=== PATIENT | male | born 1960 | race American Indian/Alaskan Native ===

== ENCOUNTER 2017-02-01 03:20 | Inpatient (IN) | payer OTHER ==
[2017-02-01 04:22] LABS: Eosinophils % (Auto) 3.4 % (0.0-4.3); Hematocrit 49.8 % (35.5-45.6); Hemoglobin 16.9 gm/dl (11.8-15.2); Mean Corpuscular HGB Conc 34 % (32-34); Mean Corpuscular Hemoglobin 32 pg (28-32); Mean Corpuscular Volume 94 fl (84-94); Platelet Count 218 K/mm3 (140-440); Red Blood Count 5.29 M/mm3 (3.65-5.03); Red Cell Distribution Width 14.3 % (13.2-15.2); White Blood Count 10.3 K/mm3 (4.5-11.0)
--- NOTE | 2017-02-01 04:51 | Emergency Department Report ---
ED Chest Pain HPI - General Chief Complaint: Chest Pain Stated Complaint: CHEST PAIN Time Seen by Provider: 02/01/17 03:40 Source: patient Mode of arrival: Ambulatory Limitations: No Limitations - History of Present Illness Initial Comments: This is a 56-year-old male presents to the emergency department by EMS from home with complaint of some midsternal and left-sided chest pain that began about 10 PM this evening. He denies any nausea, vomiting, fever or any diaphoresis. He had a small amount of shortness of breath at that time but that is resolved. He received 100 g of fentanyl in route and 2 sublingual nitroglycerin with some improvement in his discomfort. He has a history of coronary artery disease with a previous FL and a stent placed about one year ago. He also has a history of hypertension and hyperlipidemia. 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 No recent travel or sick contacts at home. He is a tobacco smoker. Severity scale (0 -10): 2 - Related Data Previous Rx's Medication Instructions Recorded Last Taken Type Clopidogrel [Plavix] 75 mg PO QDAY #30 tablet 10/10/13 04/03/16 07:14 Rx 75mg Lisinopril [Zestril TAB] 5 mg PO QDAY #30 tablet 10/11/13 04/02/16 Rx 5mg Metoprolol [Lopressor TAB] 25 mg PO BID #60 tablet 10/11/13 04/03/16 05:30 Rx Cilostazol [Pletal] 100 mg PO BID #30 tablet 04/03/16 Unknown Rx Allergies Allergy/AdvReac Type Severity Reaction Status Date / Time acetaminophen [From Tylenol] Allergy Intermediate Rash Verified 04/10/15 08:17 aspirin Allergy Swelling Verified 04/10/15 08:17 Penicillins Allergy Rash Verified 04/10/15 08:17 Heart Score - HEART Score History: Moderately suspicious EKG: Non-specific Age: 45-65 Risk factors: > 3 risk factors or hx of atherosclerotic disease Troponin: < normal limit HEART Score: 5 - Critical Actions Critical Actions: 4-6 pts:12-16.6% risk of adverse cardiac event. Should be admitted ED Review of Systems ROS: Stated complaint: CHEST PAIN Other details as noted in HPI Comment: All other systems reviewed and negative Constitutional: denies: chills, fever Eyes: denies: eye pain, eye discharge, vision change ENT: denies: ear pain, throat pain Respiratory: denies: cough, wheezing Cardiovascular: chest pain. denies: edema Gastrointestinal: denies: abdominal pain, nausea, diarrhea Genitourinary: denies: urgency, dysuria Musculoskeletal: denies: back pain, joint swelling, arthralgia Skin: denies: rash, lesions Neurological: denies: headache, weakness, paresthesias ED Past Medical Hx - Past Medical History Hx Hypertension: Yes (10/2013) Hx CVA: No Hx Heart Attack/AMI: Yes (10/09/2013) Hx Congestive Heart Failure: No Hx Diabetes: No Hx Deep Vein Thrombosis: No Hx Pulmonary Embolism: No Hx GERD: No Hx Liver Disease: No Hx Renal Disease: Yes (patient states one of his kidneys was not working but has resolved now) Hx Sickle Cell Disease: No Hx Arthritis: Yes Hx Headaches / Migraines: No Hx Seizures: No Hx Kidney Stones: Yes (2015) Hx Psychiatric Treatment: No Hx Asthma: No Hx COPD: No Hx Tuberculosis: No Hx Dementia: No Hx HIV: No Additional medical history: CAD. HIGH CHOLESTEROL - Surgical History Hx Coronary Stent: Yes (x1 10/09/2013, X 2 IN 2015) Hx Open Heart Surgery: No Hx Pacemaker: No Hx Internal Defibrillator: No Hx Cholecystectomy: Yes (2007) Hx Appendectomy: No Hx Breast Surgery: No Additional Surgical History: noa 2007 - Social History Smoking Status: Current Every Day Smoker Substance Use Type: None - Medications Home Medications: Home Medications Medication Instructions Recorded Confirmed Last Taken Type Clopidogrel [Plavix] 75 mg PO QDAY #30 tablet 10/10/13 02/01/17 04/03/16 07:14 Rx 75mg Lisinopril [Zestril TAB] 5 mg PO QDAY #30 tablet 10/11/13 02/01/17 04/02/16 Rx 5mg Metoprolol [Lopressor TAB] 25 mg PO BID #60 tablet 10/11/13 02/01/17 04/03/16 05 :30 Rx Cilostazol [Pletal] 100 mg PO BID #30 tablet 04/03/16 02/01/17 Unknown Rx ED Physical Exam - General Limitations: No Limitations - Other Other exam information: GENERAL: The patient is well-developed well-nourished. HENT: Normocephalic. Atraumatic. Patient has moist mucous membranes. EYES: Extraocular motions are intact. Pupils equal reactive to light bilaterally. NECK: Supple. Trachea is midline. CHEST/LUNGS: Clear to auscultation. There is no respiratory distress noted. Chest pain is not reproducible to palpation of the chest wall. HEART/CARDIOVASCULAR: Regular. There is no tachycardia. There is no gallop rub or murmur. ABDOMEN: Abdomen is soft, nontender. Patient has normal bowel sounds. There is no abdominal distention. Obese habitus. SKIN: Skin is warm and dry. NEURO: The patient is awake, alert, and oriented. The patient is cooperative. The patient has no focal neurologic deficits. The patient has normal speech. MUSCULOSKELETAL: There is no tenderness or deformity. There is no limitation range of motion. There is no evidence of acute injury. ED Course Vital Signs 02/01/17 03:47 Temperature 98.2 F Pulse Rate 70 Respiratory 20 Rate Blood Pressure 146/76 [Left] O2 Sat by Pulse 98 Oximetry - Consultations Consultation #1: Due to some changes in the EKG from previous including a small ST depression in aVL and slight elevation in lead 3, I called and spoke with the [employer] professional, Dr. Billy, and he took a look at a picture of the EKG and did not feel that it was a consistent morphology of ST elevation FL. 02/01/17 04:50 STEVE score - Steve Score Age > 65: (0) No Aspirin use within the Past 7 Days: (0) No 3 or more CAD Risk Factors: (1) Yes 2 or more Angina events in past 24 hrs: (1) Yes Known CAD with more than 50% Stenosis: (0) No Elevated Cardiac Markers: (1) Yes ST Deviation Greater than 0.5mm: (0) No STEVE Score: 3 ED Medical Decision Making - Lab Data Result diagrams: 02/01/17 03:39 02/01/17 03:39 - EKG Data -: EKG Interpreted by Me EKG shows normal: sinus rhythm, axis, intervals, QRS complexes (Q-wave to lead 3 ), ST-T waves (there is a mild ST depression to aVL and a mild ST elevation to lead 3) Rate: normal - EKG Data When compared to previous EKG there are: previous EKG unavailable Interpretation: other (sinus rhythm, Q wave to V3, slight ST depression to leave aVL, slight ST elevation to 3) - Radiology Data Radiology results: image reviewed interpreted by me: Chest x-ray does not show any acute process. There are no pleural effusions, obvious pneumonia and there is no pneumothorax. - Medical Decision Making 56-year-old male presents with some acute chest pain that started around 10 PM. EKG showed some mild ST wave changes from his previous visit one year ago so I spoke with the [employer] professional on-call who did not feel that this had the morphology of the elevation FL. Chest x-ray does not show any acute process. He is allergic to aspirin and therefore none was given. He had sublingual nitroglycerinin route. He was given some morphine for return of his chest pain. Labs are mostly unremarkable except for the first troponin came back elevated at 0.046. For this reason he'll be started on IV heparin and will be admitted to hospital for further evaluation and treatment. He has been accepted for admission by the hospitalist, Dr. Cole. - Differential Diagnosis FL, CHF, Pneumonia, Costochondritis, GERD Critical Care Time: No Critical care attestation.: If time is entered above; I have spent that time in minutes in the direct care of this critically ill patient, excluding procedure time. ED Disposition Clinical Impression: Non-ST elevation FL (NSTEMI) CAD (coronary artery disease) Qualifiers: Coronary Disease-Associated Artery/Lesion type: [place] artery [place] vs. transplanted heart: [place] heart Associated angina: angina presence unspecified Qualified Code(s): I25.10 - Atherosclerotic heart disease of [place] coronary artery without angina pectoris Disposition: 09 OP ADMIT IP TO THIS HOSP Is pt being admited?: Yes Condition: Fair Referrals: RIMMA BILLY MD [Primary Care Provider] - 3-5 Days Time of Disposition: 05:57
[2017-02-01 05:29] LABS: Anion Gap 20 mmol/L; BUN/Creatinine Ratio 22.22; Blood Urea Nitrogen 20 mg/dL (9-20); Calcium 9.2 mg/dL (8.4-10.2); Carbon Dioxide 22 mmol/L (22-30); Chloride 98.6 mmol/L (98-107); Glucose 119 mg/dL (75-100); Potassium 4.2 mmol/L (3.6-5.0); Sodium 136 mmol/L (137-145)
[2017-02-01] MEDS ORDERED: MORPHINE ONE (05:32)
[2017-02-01] MEDS ORDERED: MORPHINE IV ONE (05:33)
[2017-02-01 05:46] LABS: Cholesterol 187 mg/dL (50-199); HDL Cholesterol 39 mg/dL (40-59); LDL Cholesterol,Direct 125 mg/dL (50-130); Triglycerides 118 mg/dL (2-149)
[2017-02-01] MEDS ORDERED: HEPARIN 10,000 UNITS/10 ML IV ONE (05:48)
[2017-02-01] MEDS ORDERED: HEPARIN/ 0.45% NACL-25,000 UNIT/500 ML 25,000 UNIT/500 ML BAG IV SCH (06:00)
[2017-02-01] MEDS ORDERED: MORPHINE IV PRN (06:14)
--- NOTE | 2017-02-01 06:20 | History and Physical Report ---
History of Present Illness Date of examination: 02/01/17 Chief complaint: Chest pain History of present illness: 69-year-old -[place] male with past medical history significant for CAD status post 2 stents, hyperlipidemia, hypertension, arthritis presented to the emergency department for complaints of chest pain that started last night. Chest pain is generalized involving left and right-sided, sharp, with radiation to both arms, associated with shortness of breath, no aggravating factors identified, relieved with morphine. REVIEW OF SYSTEMS: GENERAL: no weight change, no fatigue, no fever HEAD: no head ache EYES: no blurry vision, no acute visual loss EARS: no hearing loss, no discharge, no earache NOSE: no stuffiness, no sneezing, no discharge MOUTH, THROAT AND NECK: no bleeding gums, no sore throat, no swollen neck CARDIAC: As stated in HPI. RESPIRATORY: no shortness of breath, no wheeze, no cough, no sputum, no hemoptysis, no asthma GI: no decreased appetite, no nausea, no vomiting, no dysphagia, no diarrhea, no constipation, no abdominal pain URINARY: no change in frequency, no urgency, no polyuria, no hematuria, no incontinence MUSCULOSKELETAL: no muscle weakness, no pain, no joint stiffness NEUROLOGIC: no loss of sensation/numbness, no tingling, no tremors, no weakness/ paralysis HEMATOLOGIC: no anemia, no easy bruising SKIN: no rashes ENDOCRINE: no heat/cold intolerance, no polyuria, no polydipsia, no thyroid problems, no diabetes PSYCHIATRIC: no anxiety, no depression, no suicidal ideations Past History Past Medical History: CAD, hypertension, hyperlipidemia Past Surgical History: cholecystectomy Social history: smoking (half a pack a day), full code. denies: alcohol abuse, prescription drug abuse, IV drug use Family history: CAD, stroke Medications and Allergies Allergies Allergy/AdvReac Type Severity Reaction Status Date / Time acetaminophen [From Tylenol] Allergy Intermediate Rash Verified 04/10/15 08:17 aspirin Allergy Swelling Verified 04/10/15 08:17 Penicillins Allergy Rash Verified 04/10/15 08:17 Home Medications Medication Instructions Recorded Confirmed Last Taken Type Clopidogrel [Plavix] 75 mg PO QDAY #30 tablet 10/10/13 02/01/17 04/03/16 07:14 Rx 75mg Lisinopril [Zestril TAB] 5 mg PO QDAY #30 tablet 10/11/13 02/01/17 04/02/16 Rx 5mg Metoprolol [Lopressor TAB] 25 mg PO BID #60 tablet 10/11/13 02/01/17 04/03/16 05 :30 Rx Cilostazol [Pletal] 100 mg PO BID #30 tablet 04/03/16 02/01/17 Unknown Rx Active Meds: Active Medications Clopidogrel Bisulfate (Plavix) 75 mg PO QDAY [facility] Heparin Sodium/Sodium Chloride (Heparin/ 0.45% Nacl-25,000 Unit/500 Ml) 25,000 unit in 500 mls @ 20 mls/hr IV TITRATE [facility]; 1,000 UNITS/HR PRN Reason: Protocol Isosorbide Dinitrate (Isordil Titradose) 20 mg PO TID [facility] Exam - Physical Exam Narrative exam: Not in cardiopulmonary distress. The patient is obese. Vital signs as documented. Head exam is unremarkable. No scleral icterus . Neck is without jugular venous distension, thyromegaly, or carotid bruits. Lungs are clear to auscultation. Cardiac exam reveals regular rate and Rhythm. First and second heart sounds normal. No murmurs, rubs or gallops. Abdominal exam reveals normal bowel sounds, no masses, no organomegaly and no aortic enlargement. Extremities are nonedematous and both femoral and pedal pulses are normal. NURSES AIDE: Alert and oriented 3. No focal weakness. - Constitutional Vitals: Temp Pulse Resp BP Pulse Ox 98.2 F 70 18 146/76 99 02/01/17 03:47 02/01/17 03:47 02/01/17 05:33 02/01/17 03:47 02/01/17 04:37 Results - Labs CBC & Chem 7: 02/01/17 03:39 02/01/17 03:39 Labs: Laboratory Last Values WBC 10.3 K/mm3 (4.5-11.0) 02/01/17 03:39 RBC 5.29 M/mm3 (3.65-5.03) H 02/01/17 03:39 Hgb 16.9 gm/dl (11.8-15.2) H 02/01/17 03:39 Hct 49.8 % (35.5-45.6) H 02/01/17 03:39 MCV 94 fl (84-94) 02/01/17 03:39 MCH 32 pg (28-32) 02/01/17 03:39 MCHC 34 % (32-34) 02/01/17 03:39 RDW 14.3 % (13.2-15.2) 02/01/17 03:39 Plt Count 218 K/mm3 (140-440) 02/01/17 03:39 Lymph % (Auto) 37.0 % (13.4-35.0) H 02/01/17 03:39 Gage % (Auto) 8.7 % (0.0-7.3) H 02/01/17 03:39 Eos % (Auto) 3.4 % (0.0-4.3) 02/01/17 03:39 Baso % (Auto) 1.0 % (0.0-1.8) 02/01/17 03:39 Lymph # 3.8 K/mm3 (1.2-5.4) 02/01/17 03:39 Gage # 0.9 K/mm3 (0.0-0.8) H 02/01/17 03:39 Eos # 0.3 K/mm3 (0.0-0.4) 02/01/17 03:39 Baso # 0.1 K/mm3 (0.0-0.1) 02/01/17 03:39 Seg Neutrophils % 49.9 % (40.0-70.0) 02/01/17 03:39 Seg Neutrophils # 5.1 K/mm3 (1.8-7.7) 02/01/17 03:39 Sodium 136 mmol/L (137-145) L 02/01/17 03:39 Potassium 4.2 mmol/L (3.6-5.0) 02/01/17 03:39 Chloride 98.6 mmol/L (98-107) 02/01/17 03:39 Carbon Dioxide 22 mmol/L (22-30) 02/01/17 03:39 Anion Gap 20 mmol/L 02/01/17 03:39 BUN 20 mg/dL (9-20) 02/01/17 03:39 Creatinine 0.9 mg/dL (0.8-1.5) 02/01/17 03:39 Estimated GFR > 60 ml/min 02/01/17 03:39 BUN/Creatinine Ratio 22.22 % 02/01/17 03:39 Glucose 119 mg/dL (75-100) H 02/01/17 03:39 Calcium 9.2 mg/dL (8.4-10.2) 02/01/17 03:39 Troponin T 0.047 ng/mL (0.00-0.029) H 02/01/17 03:39 Triglycerides 118 mg/dL (2-149) 02/01/17 03:39 Cholesterol 187 mg/dL (50-199) 02/01/17 03:39 LDL Cholesterol Direct 125 mg/dL (50-130) 02/01/17 03:39 HDL Cholesterol 39 mg/dL (40-59) L 02/01/17 03:39 Cholesterol/HDL Ratio 4.79 % 02/01/17 03:39 - Imaging and Cardiology EKG: image reviewed (ST depression in lead 1 and aVL, ST elevation in V2) Chest x-ray: image reviewed (no acute cardiothoracic abnormality) Assessment and Plan Assessment and plan: Chest pain NSTEMI CAD status post stents, the last one was a year ago Hypertension Medication non-compliance Hyperlipidemia Tobacco abuse - Elevated troponin, EKG shows ST depression in lead 1 and aVL, ST elevation in V2, and Dr. Naranjo consulted and said no ST elevation - Patient is being treated according to ACS protocol, patient is allergic to aspirin and he is on Plavix - Continue appropriate home medications - Counselled about medication adherence and cessation of smoking DVT prophylaxis - Patient is on therapeutic heparin for NSTEMI Disposition - Admit to telemetry floor. Advance Directives: Yes VTE prophylaxis?: Chemical Plan of care discussed with patient/family: Yes
[2017-02-01] MEDS ORDERED: HEPARIN 10,000 UNITS/10 ML ONE (06:54)
[2017-02-01] MEDS ORDERED: HEPARIN/ 0.45% NACL-25,000 UNIT/500 ML 25,000 UNIT/500 ML BAG ONE (06:54)
[2017-02-01 07:14] LABS: INR 0.94 (0.87-1.13)
[2017-02-01 07:15] LABS: Partial Thromboplastin Time 27.8 Sec. (24.2-36.6)
--- NOTE | 2017-02-01 07:15 | XRay Report ---
AP CHEST: HISTORY: chest pain AP view of the chest demonstrates a normal mediastinal and cardiac contour with clear lungs and normal bony and soft tissue structures. IMPRESSION: Unremarkable AP chest.
[2017-02-01] MEDS ORDERED: ISORDIL TITRADOSE PO SCH (08:00)
[2017-02-01] MEDS ORDERED: ZESTRIL PO SCH ×2 (10:00→13:40)
[2017-02-01] MEDS ORDERED: PLAVIX PO SCH ×2 (10:00)
[2017-02-01] MEDS ORDERED: PLETAL PO SCH (10:00)
[2017-02-01] MEDS ORDERED: LOPRESSOR PO SCH ×2 (10:00)
--- NOTE | 2017-02-01 10:03 | Consultation ---
History of Present Illness Consult date: 02/01/17 Requesting physician: MELODY BREWER Consult reason: abnormal cardiac enzymes History of present illness: The pt is a 56 YO male with a past medical history significant for CAD, s/p PCI (10/09/2013>s/p PCI of mid LAD with ANGELA,right radial,50% mid circ,ectatic RCA>EF 40-45%; 04/03/2016>mid crc ANGELA 3.5 x 12 Xience Alpine stent with patent mid LAD stent and 40-50% proximal LAD lesion and mild to moderate RCA disease.EF 50%), HTN, HLP and tobacco use. He is followed in our office by Dr. Naranjo. He presented with c/o chest pain since yesterday AM. He describes his chest pain as a misternal and left-sided intermittent "pressing" pain. The pain persisted throughout the day yesterday and around 10PM last night, became unbearable (10/ 10 on 0-10 numerical pain scale) and thus he decided to seek medical attention. Pt reports that the pain is aggravated by lying flat and alleviated by sitting upright. The pain is associated with SOB. He denies any palpitations, n/v, diaphoresis, dizziness or syncope. Pt has known ASA allergy. He states he has been compliant with his home medication regimen, including Plavix, Pletal, lopressor, lisinopril and pravastatin. On evaluation, he reports that he is still experiencing the chest pain intermittently but has experienced some relief since receiving IV morphine. He is currently on a heparin gtt. Echo done 09/03/2014 showed EF 55-60%, impaired relaxation. Past History Past Medical History: CAD, hypertension, hyperlipidemia Past Surgical History: cholecystectomy, Other (PCI) Social history: smoking (half a pack a day), full code. denies: alcohol abuse, prescription drug abuse, IV drug use Family history: CAD, stroke Medications and Allergies Allergies Allergy/AdvReac Type Severity Reaction Status Date / Time acetaminophen [From Tylenol] Allergy Intermediate Rash Verified 04/10/15 08:17 aspirin Allergy Swelling Verified 04/10/15 08:17 Penicillins Allergy Rash Verified 04/10/15 08:17 Home Medications Medication Instructions Recorded Confirmed Last Taken Type Clopidogrel [Plavix] 75 mg PO QDAY #30 tablet 10/10/13 02/01/17 04/03/16 07:14 Rx 75mg Lisinopril [Zestril TAB] 5 mg PO QDAY #30 tablet 10/11/13 02/01/17 04/02/16 Rx 5mg Metoprolol [Lopressor TAB] 25 mg PO BID #60 tablet 10/11/13 02/01/17 04/03/16 05 :30 Rx Cilostazol [Pletal] 100 mg PO BID #30 tablet 04/03/16 02/01/17 Unknown Rx Active Meds: Active Medications Cilostazol (Pletal) 100 mg PO BID [facility] Clopidogrel Bisulfate (Plavix) 75 mg PO QDAY [facility] Heparin Sodium/Sodium Chloride (Heparin/ 0.45% Nacl-25,000 Unit/500 Ml) 25,000 unit in 500 mls @ 20 mls/hr IV TITRATE [facility]; 1,000 UNITS/HR PRN Reason: Protocol Last Admin: 02/01/17 07:03 Dose: 1,000 units/hr, 20 mls/hr Isosorbide Dinitrate (Isordil Titradose) 20 mg PO TID [facility] Last Admin: 02/01/17 09:13 Dose: 20 mg Lisinopril (Zestril) 5 mg PO QDAY [facility] Metoprolol Tartrate (Lopressor) 25 mg PO BID [facility] Morphine Sulfate (Morphine) 2 mg IV Q4H PRN PRN Reason: Pain, Moderate (4-6) Review of Systems Constitutional: no weight loss, no weight gain, no fever, no chills, no sweats Ears, nose, mouth and throat: no ear pain, no nose pain, no sinus pressure, no sinus pain Cardiovascular: chest pain, shortness of breath, high blood pressure, no orthopnea, no palpitations, no rapid/irregular heart beat, no edema, no syncope , no lightheadedness, no dyspnea on exertion, no paroxysmal nocturnal dyspnea, no leg edema Respiratory: shortness of breath, no cough, no dyspnea on exertion, no congestion, no wheezing, no pain on inspiration Gastrointestinal: no abdominal pain, no nausea, no vomiting, no diarrhea, no constipation, no change in bowel habits Genitourinary Male: no dysuria, no hematuria, no flank pain, no discharge, no urinary frequency, no urinary hesitancy Musculoskeletal: no neck stiffness, no neck pain, no shooting arm pain, no arm numbness/tingling, no low back pain, no shooting leg pain, no leg numbness/ tingling, no redness of joints Integumentary: no rash, no pruritis, no redness, no sores, no wounds Neurological: no head injury, no paralysis, no weakness, no parathesias, no numbness, no tingling, no seizures, no syncope Psychiatric: no anxiety Endocrine: no cold intolerance, no heat intolerance Hematologic/Lymphatic: no easy bruising, no easy bleeding, no lymphadenopathy Allergic/Immunologic: no urticaria, no wheezing, no persistent infections Physical Examination Vital Signs Temp Pulse Resp BP Pulse Ox 98.2 F 70 20 146/76 98 02/01/17 03:47 02/01/17 03:47 02/01/17 03:47 02/01/17 03:47 02/01/17 03:47 General appearance: mild distress HEENT: Positive: PERRL, Normocephaly, Mucus Membranes Moist Neck: Positive: neck supple, trachea midline Cardiac: Positive: Reg Rate and Rhythm, S1/S2 Lungs: Positive: clear to auscultation Neuro: Positive: Grossly Intact, Cranial Nerve 2-12 Intact Abdomen: Positive: Unremarkable, Soft, Active Bowel Sounds. Negative: Tender Skin: Positive: Clear. Negative: Rash, Wound Musculoskeletal: No Fluid Collection, No Pain, Normal Range of Motion Extremities: Absent: edema Results 02/01/17 03:39 02/01/17 03:39 Coagulation 02/01/17 Range/Units 06:47 PT 13.0 (12.2-14.9) Sec. INR 0.94 (0.87-1.13) APTT 27.8 (24.2-36.6) Sec. - Imaging and Cardiology Echo: report reviewed ( 09/03/2014 showed EF 55-60%, impaired relaxation. ) Cardiac cath: report reviewed (10/09/2013>s/p PCI of mid LAD with ANGELA,right radial,50% mid circ,ectatic RCA>EF 40-45%; 04/03/2016>mid crc ANGELA 3.5 x 12 Xience Alpine stent with patent mid LAD stent and 40-50% proximal LAD lesion and mild to moderate RCA disease.EF 50%) EKG: image reviewed EKG interpretations - Telemetry EKG Rhythm: Sinus Rhythm - EKG Sinus rhythms and dysrhythmias: sinus rhythm Ventricular dysrhythmias: ventricular premature com Additional Comments: j point elevations Assessment and Plan Assessment: Chest pain, atypical Elevated troponin - minimally elevated and flat CAD s/p PCI Abnormal EKG HTN HLP Tobacco use - cessation encouraged ASA allergy Plan: F/u echo. Will proceed with lexiscan MPI stress test. Await findings. Cont current cardiac regimen, including heparin gtt, plavix, pletal, lopressor, lisinopril, isordil. The patient has been seen in conjunction with Dr. Ramos who agrees with the assessment and plan of care.
[2017-02-01] MEDS ORDERED: LEXISCAN IV ONE ×2 (11:40→11:43)
--- NOTE | 2017-02-01 13:47 | Event Note ---
Date: 02/01/17 s/p lexiscan MPI stress test this AM, which showed moderate fixed inferior defect, no ischemia, EF 45%. D/c heparin. Optimize anti-hypertensive regimen - increase lisinopril to 10mg daily. D/c isordil and initiate Imdur, 60mg daily. D/c echo and plan for echo as OP. Currently stable cardiac status. Pt may discharge home from cardiology standpoint. Follow up in our [place] office with Dr. Naranjo on 02/11/2017 @ 2:30PM. Saundra HALE NP / DR. GALVAN
[2017-02-01 14:55] VITALS: BP 123/79
--- NOTE | 2017-02-01 15:31 | Discharge Summary ---
Providers - Providers Date of Admission: 02/01/17 06:10 Date of discharge: 02/01/17 Attending physician: DEMARCUS MAURER 02/01/17 Consult to Cardiac Rehabilitation [CONS] Routine Reason For Exam: Phase 1 02/01/17 06:11 Consult to Cardiology [CONS] Routine Consulting Provider: RIMMA BILLY Reason For Exam: NSTEMI Primary care physician: RIMMA BILLY Hospitalization Reason for admission: chest pain Condition: Fair Pertinent studies: CXR MPI Disposition: - TO HOME OR SELFCARE Time spent for discharge: 35 min Core Measure Documentation - Palliative Care Palliative Care/ Comfort Measures: Not Applicable - Core Measures Any of the following diagnoses?: heart failure - Heart Failure Discharge Requirements STEPHANIE/ARB for LVSD if EF <40%: Yes Beta fernando at discharge: Yes Exam - Physical Exam Narrative exam: Seen and examined: - Constitutional Vitals: Temp Pulse Resp BP Pulse Ox 97.6 F 96 H 20 123/79 92 02/01/17 09:00 02/01/17 12:18 02/01/17 09:00 02/01/17 12:18 02/01/17 09:00 General appearance: Present: no acute distress, obese - EENT Eyes: Present: PERRL, EOM intact - Neck Neck: Present: supple, normal ROM. Absent: masses or JVD - Respiratory Respiratory effort: normal Respiratory: bilateral: CTA, negative: rales, rhonchi - Cardiovascular Rhythm: regular Heart Sounds: Present: S1 & S2. Absent: systolic murmur - Extremities Extremities: no ischemia - Abdominal General gastrointestinal: Present: soft, non-tender, non-distended, normal bowel sounds - Musculoskeletal Musculoskeletal: strength equal bilaterally - Psychiatric Psychiatric: cooperative - Neurologic Neurologic: CNII-XII intact, no focal deficits Plan Activity: advance as tolerated, fall precautions Diet: low cholesterol, low salt Follow up with: RIMMA BILLY MD [Primary Care Provider] - 02/11/17 2:30 am Prescriptions: Cilostazol [Pletal] 100 mg PO BID #30 tablet Clopidogrel [Plavix] 75 mg PO QDAY #30 tablet ISOSORBIDE MONOnitrate [Imdur ER] 60 mg PO QDAY #30 tablet Lisinopril [Zestril TAB] 10 mg PO QDAY #30 tablet Metoprolol [Lopressor TAB] 25 mg PO BID #60 tablet
--- NOTE | 2017-02-02 07:31 | Treadmill Report ---
REFERRING PHYSICIAN: Tamiko Rowley MD., hospitalist. The patient received 10 mCi of technetium 99m Myoview intravenously under resting conditions. Resting myocardial perfusion scan was done. Subsequently, the patient underwent Lexiscan stress as par the protocol.During lexiscan stress , patient received 28 mci of technetium intravenously. After 30-60 minutes, post stress images were done. Computerized reconstruction images were performed for analysis. The post-stress images reveal moderate-sized inferior wall perfusion defect of moderate severity. Gated study did not reveal any wall motion abnormality. Mild global left ventricular systolic dysfunction is seen with LVEF around 45%. The resting images again revealed the perfusion defect seen in the stress images. CONCLUSION: 1. Moderate-sized fixed inferior wall perfusion defect of moderate severity. 2. Mild global left ventricular systolic dysfunction with LVEF around 45%. JOB# [id number] [facility]/CESIA MTDD
[2017-02-02] MEDS ORDERED: IMDUR PO SCH (10:00)
== END 2017-02-01 19:19 | disposition home or self-care (01) | DRG 313 ==
LOC: ED 03:20 → 4A 06:10
PROVIDERS: ADMIT Internal Medicine; ATTEND Internal Medicine
DX: R07.89 Other chest pain (principal); I25.10 Atherosclerotic heart disease of native coronary artery without angina pectoris; I10 Essential (primary) hypertension; E78.5 Hyperlipidemia, unspecified; F17.210 Nicotine dependence, cigarettes, uncomplicated; M19.90 Unspecified osteoarthritis, unspecified site; N28.9 Disorder of kidney and ureter, unspecified; E78.00 Pure hypercholesterolemia, unspecified; Z95.5 Presence of coronary angioplasty implant and graft; Z87.442 Personal history of urinary calculi; Z90.49 Acquired absence of other specified parts of digestive tract; Z79.02 Long term (current) use of antithrombotics/antiplatelets; Z79.899 Other long term (current) drug therapy; Z82.49 Family history of ischemic heart disease and other diseases of the circulatory system; Z82.3 Family history of stroke; Z88.6 Allergy status to analgesic agent; Z88.0 Allergy status to penicillin; Z91.14 Patient's other noncompliance with medication regimen; Z71.6 Tobacco abuse counseling
CPT/HCPCS: 36415; 71010; 78452; 80048; 80061; 84484; 85025; 85520; 85610; 85730; 93005; 93010; 93017; 96374; 96375; 99285; 99406; A9502; J1644; J2270; J2785

== ENCOUNTER 2018-08-25 19:53 | Inpatient (IN) | payer OTHER ==
[2018-08-25] MEDS ORDERED: ASPIRIN PO ONE (20:15)
[2018-08-25 20:30] LABS: Hematocrit 55.7 % (35.5-45.6); Hemoglobin 18.6 gm/dl (11.8-15.2); Mean Corpuscular HGB Conc 33 % (32-34); Mean Corpuscular Volume 94 fl (84-94); Platelet Count 236 K/mm3 (140-440); Red Blood Count 5.94 M/mm3 (3.65-5.03); Red Cell Distribution Width 14.4 % (13.2-15.2)
[2018-08-25 20:45] LABS: BUN/Creatinine Ratio 11; Blood Urea Nitrogen 11 mg/dL (9-20); Calcium 9.6 mg/dL (8.4-10.2); Hemolysis Index 157
[2018-08-25 21:02] LABS: Chol/HDL Ratio 5.33 %; HDL Cholesterol 36 mg/dL (40-59); LDL Cholesterol,Direct 148 mg/dL (50-130)
--- NOTE | 2018-08-25 21:38 | Emergency Department Report ---
ED Chest Pain HPI - General Chief Complaint: Chest Pain Stated Complaint: CHEST PAIN Time Seen by Provider: 08/25/18 21:26 Source: patient Mode of arrival: Ambulatory Limitations: No Limitations - History of Present Illness Initial Comments: Patient is 57 years old male with history of coronary artery disease, status post stenting 2015, hypertension and diabetes. Patient presented to the ER complaining of substernal chest pain, squeezing in nature with no radiation. The patient stated that his pain is 7 out of 10 now. Patient stated pain started last night. Patient denied any shortness of breath, nausea or vomiting. Patient stated that he is allergic to aspirin. MD Complaint: chest pain -: Last night Onset: during rest Pain Location: substernal Severity scale (0 -10): 10 Quality: heaviness, squeezing Consistency: constant - Related Data Previous Rx's Medication Instructions Recorded Last Taken Type Cilostazol [Pletal] 100 mg PO BID #30 tablet 02/01/17 Unknown Rx Clopidogrel [Plavix] 75 mg PO QDAY #30 tablet 02/01/17 Unknown Rx ISOSORBIDE MONOnitrate [Imdur ER] 60 mg PO QDAY #30 tablet 02/01/17 Unknown Rx Lisinopril [Zestril TAB] 10 mg PO QDAY #30 tablet 02/01/17 Unknown Rx Metoprolol [Lopressor TAB] 25 mg PO BID #60 tablet 02/01/17 Unknown Rx Allergies Allergy/AdvReac Type Severity Reaction Status Date / Time acetaminophen [From Tylenol] Allergy Intermediate Rash Verified 04/10/15 08:17 aspirin Allergy Swelling Verified 04/10/15 08:17 Penicillins Allergy Rash Verified 04/10/15 08:17 Heart Score - HEART Score History: Highly suspicious EKG: Non-specific Age: 45-65 Risk factors: > 3 risk factors or hx of atherosclerotic disease Troponin: 1-3x normal limit HEART Score: 7 - Critical Actions Critical Actions: >7 pts:50-65% risk of adverse cardiac event. Early invasive measures ED Review of Systems ROS: Stated complaint: CHEST PAIN Other details as noted in HPI Comment: All other systems reviewed and negative Constitutional: denies: chills, fever ENT: denies: throat pain Respiratory: denies: cough, shortness of breath, SOB with exertion Cardiovascular: chest pain. denies: palpitations, dyspnea on exertion, orthopnea Gastrointestinal: denies: abdominal pain, nausea, vomiting Neurological: denies: headache, weakness, numbness ED Past Medical Hx - Past Medical History Hx Hypertension: Yes Hx CVA: No Hx Heart Attack/AMI: Yes Hx Congestive Heart Failure: Yes Hx Diabetes: No Hx Deep Vein Thrombosis: No Hx Pulmonary Embolism: No Hx GERD: No Hx Liver Disease: No Hx Renal Disease: Yes (patient states one of his kidneys was not working but has resolved now) Hx Sickle Cell Disease: No Hx Arthritis: Yes Hx Headaches / Migraines: No Hx Seizures: No Hx Kidney Stones: Yes (2016) Hx Psychiatric Treatment: No Hx Asthma: No Hx COPD: No Hx Tuberculosis: No Hx Dementia: No Hx HIV: No Additional medical history: CAD. HIGH CHOLESTEROL - Surgical History Hx Coronary Stent: Yes (x2) Hx Open Heart Surgery: No Hx Pacemaker: No Hx Internal Defibrillator: No Hx Cholecystectomy: Yes (2007) Hx Appendectomy: No Hx Breast Surgery: No Additional Surgical History: noa 2007 - Social History Smoking Status: Current Every Day Smoker Substance Use Type: None - Medications Home Medications: Home Medications Medication Instructions Recorded Confirmed Last Taken Type Cilostazol [Pletal] 100 mg PO BID #30 tablet 02/01/17 Unknown Rx Clopidogrel [Plavix] 75 mg PO QDAY #30 tablet 02/01/17 Unknown Rx ISOSORBIDE MONOnitrate [Imdur ER] 60 mg PO QDAY #30 tablet 02/01/17 Unknown Rx Lisinopril [Zestril TAB] 10 mg PO QDAY #30 tablet 02/01/17 Unknown Rx Metoprolol [Lopressor TAB] 25 mg PO BID #60 tablet 02/01/17 Unknown Rx ED Physical Exam - General Limitations: No Limitations General appearance: alert, in no apparent distress - Head Head exam: Present: atraumatic, normocephalic, normal inspection - Eye Eye exam: Present: normal appearance, PERRL - ENT ENT exam: Present: normal exam, normal orophraynx, mucous membranes moist - Neck Neck exam: Present: normal inspection, full ROM. Absent: tenderness, meningismus, lymphadenopathy, thyromegaly - Respiratory Respiratory exam: Present: normal lung sounds bilaterally - Cardiovascular Cardiovascular Exam: Present: regular rate, normal rhythm, normal heart sounds - GI/Abdominal GI/Abdominal exam: Present: soft, normal bowel sounds. Absent: distended, te nderness, guarding, rebound, rigid, organomegaly, mass, bruit, pulsatile mass, hernia - Extremities Exam Extremities exam: Present: normal inspection, full ROM, normal capillary refill. Absent: pedal edema, calf tenderness - Back Exam Back exam: Present: normal inspection, full ROM. Absent: tenderness, CVA tenderness (R), CVA tenderness (L), muscle spasm, paraspinal tenderness, vertebral tenderness - Neurological Exam Neurological exam: Present: alert, oriented X3, CN II-XII intact, normal gait, reflexes normal - Skin Skin exam: Present: warm, intact, normal color ED Course Vital Signs 08/25/18 08/25/18 08/25/18 20:06 20:13 21:02 Temperature 98.2 F 98.2 F Pulse Rate 94 H 100 H 101 H Respiratory 18 18 16 Rate Blood Pressure 146/97 146/97 O2 Sat by Pulse 96 98 Oximetry STEVE score - Steve Score Age > 65: (0) No Aspirin use within the Past 7 Days: (0) No 3 or more CAD Risk Factors: (1) Yes 2 or more Angina events in past 24 hrs: (1) Yes Known CAD with more than 50% Stenosis: (0) No Elevated Cardiac Markers: (1) Yes ST Deviation Greater than 0.5mm: (0) No STEVE Score: 3 ED Medical Decision Making - Lab Data Result diagrams: 08/25/18 20:19 08/25/18 20:19 - EKG Data -: EKG Interpreted by Me EKG shows normal: sinus rhythm Rate: tachycardia - EKG Data Interpretation: no acute changes - Radiology Data Radiology results: report reviewed - Medical Decision Making Patient is 57 years old male with history of coronary artery disease, status post stenting 2016, hypertension and diabetes. Patient presented to the ER complaining of substernal chest pain, squeezing in nature with no radiation. The patient stated that his pain is 7 out of 10 now. Patient stated pain started last night. Patient denied any shortness of breath, nausea or vomiting. Patient stated that he is allergic to aspirin. Patient EKG did not show any ST elevation. Troponin is positive. Discussed the patient is Dr. Marrero, advised to start heparin drip and patient will be taken to the cardiac cath tomorrow. I discussed the patient is Dr. Thalia Mehta, she'll return to the patient to medical service. Critical Care Time: Yes Critical care time in (mins) excluding proc time.: 30 Critical care attestation.: If time is entered above; I have spent that time in minutes in the direct care of this critically ill patient, excluding procedure time. ED Disposition Clinical Impression: Non-ST elevation SC (NSTEMI) Disposition: OP ADMIT IP TO THIS HOSP Is pt being admited?: Yes Condition: Stable Referrals: MERLYN SHAFFER MD [Primary Care Provider] - 3-5 Days
[2018-08-25 21:46] LABS: Total Cells Counted 100
[2018-08-25 21:47] LABS: Basophils % (Manual) 0 % (0.0-1.8); Eosinophils % (Manual) 0 % (0.0-4.3); RBC Morphology Normal
[2018-08-25] MEDS ORDERED: HEPARIN 10,000 UNITS/10 ML IV ONE (21:52)
[2018-08-25] MEDS ORDERED: HEPARIN/ 0.45% NACL-25,000 UNIT/500 ML 25,000 UNIT/500 ML BAG IV SCH (22:00)
--- NOTE | 2018-08-25 22:03 | XRay Report ---
PROCEDURE: XR CHEST ROUTINE 2V TECHNIQUE: PA and lateral chest radiographs were obtained. HISTORY: Chest Pain COMPARISONS: None. FINDINGS: Heart: Normal. Mediastinum/Vessels: Normal. Atherosclerotic calcifications. Lungs/Pleural space: Normal. Bony thorax: No acute osseous abnormality. Degenerative change of the spine. IMPRESSION: No acute cardiopulmonary disease. This document is electronically signed by Ankit Laws MD., August 25 2018 10:01:29 PM ET
[2018-08-25] MEDS ORDERED: MORPHINE IV ONE (22:11)
[2018-08-25] MEDS ORDERED: ZOFRAN IV ONE (22:11)
[2018-08-25 22:19] LABS: Hematocrit 53.3 % (35.5-45.6); Hemoglobin 18.3 gm/dl (11.8-15.2)
[2018-08-25] MEDS ORDERED: ZOFRAN IV PRN (22:21)
[2018-08-25] MEDS ORDERED: MORPHINE IV PRN (22:21)
[2018-08-25] MEDS ORDERED: SODIUM CHLORIDE FLUSH SYRINGE 10 ML IV PRN (22:21)
--- NOTE | 2018-08-25 22:21 | History and Physical Report ---
History of Present Illness Date of examination: 08/25/18 History of present illness: 57-year-old man with history of hypertension, hyperlipidemia, coronary artery disease, sciatica, peripheral vascular disease comes emergency room complaining of chest pain, across his chest 2 days. Describes the pain as squeezing, con stant, intensity 7/10, no radiation, took 2 nitroglycerin at home with some relief. Admits to nausea, diaphoresis, shortness of breath, no palpitations Review of systems Constitutional: no weight loss, chills, fever Ears, eyes, nose, mouth and throat: no nasal congestion, no nasal discharge, no sinus pressure, no vision change, no red eye. Neck: No neck pain or rigidity. Cardiovascular: no palpitations Respiratory: no cough,+ shortness of breath Gastrointestinal: no hematochezia, abdominal pain Genitourinary : no frequency , no hematuria Musculoskeletal: no joint swelling or muscle ache Integumentary: no rash, no pruritis Neurological: no parathesias, no focal weakness Endocrine: no cold or heat intolerance, no polyuria or polydipsia Hematologic/Lymphatic: no easy bruising, no easy bleeding, no gland swelling Allergic/Immunologic: no urticaria, no angioedema. PAST MEDICAL HISTORY:hypertension, hyperlipidemia, coronary artery disease, sciatica, peripheral vascular disease PAST SURGICAL HISTORY: Cholecystectomy SOCIAL HISTORY: Denies alcohol, drugs, smokes half pack day FAMILY HISTORY: Hypertension Medications and Allergies Allergies Allergy/AdvReac Type Severity Reaction Status Date / Time acetaminophen [From Tylenol] Allergy Intermediate Rash Verified 04/10/15 08:17 aspirin Allergy Swelling Verified 04/10/15 08:17 Penicillins Allergy Rash Verified 04/10/15 08:17 citrus Allergy Rash Uncoded 08/27/18 11:32 tomato Allergy Rash Uncoded 08/27/18 11:33 Home Medications Medication Instructions Recorded Confirmed Last Taken Type Cilostazol [Pletal] 100 mg PO BID #30 tablet 02/01/17 08/26/18 Unknown Rx Clopidogrel [Plavix] 75 mg PO QDAY #30 tablet 02/01/17 08/26/18 Unknown Rx Lisinopril [Zestril TAB] 10 mg PO QDAY #30 tablet 02/01/17 08/26/18 Unknown Rx Metoprolol [Lopressor TAB] 25 mg PO BID #60 tablet 02/01/17 08/26/18 Unknown Rx AtorvaSTATin [Lipitor] 80 mg PO QHS #60 tablet 08/27/18 Unknown Rx Clopidogrel [Plavix] 75 mg PO BID #60 tablet 08/27/18 Unknown Rx ISOSORBIDE MONOnitrate [Imdur ER] 30 mg PO DAILY #30 tab.er.24h 08/27/18 Unknown Rx Tramadol HCl [Ultram] 50 mg PO Q8H PRN #10 tablet 08/27/18 Unknown Rx Active Meds: Active Medications Heparin Sodium/Sodium Chloride (Heparin/ 0.45% Nacl-25,000 Unit/500 Ml) 25,000 unit in 500 mls @ 20 mls/hr IV TITRATE ALEA; Protocol Exam - Physical Exam Narrative exam: General Apperance: The patient lying in bed, breathing comfortable HEENT: Normocephalic, atraumatic. Pupils equally round and reactive to light, EOMI, no sclericterus or JVD or thyromegaly or nodule. , no carotid bruit, mucous membranes moist, no exudate or erythema Heart: S1-S2, regular is rhythm Lungs: Clear to auscultation bilaterally, breathing comfortable Abdomen: Positive bowel sounds, soft, nontender, nondistended, no organomegaly Extremities: No edema cyanosis clubbing Skin: no rash, nodule, warm and dry Neuro: cranial nerves 2-12 intact, speech is fluent, motor/sensory intact - Constitutional Vitals: Temp Pulse Resp BP Pulse Ox 98.2 F 101 H 16 146/97 98 08/25/18 20:13 08/25/18 21:02 08/25/18 21:02 08/25/18 20:13 08/25/18 20:13 Results - Labs CBC & Chem 7: 08/27/18 05:17 08/27/18 05:17 Labs: Abnormal lab results 08/25/18 08/25/18 Range/Units 20:19 20:19 WBC 12.1 H (4.5-11.0) K/mm3 RBC 5.94 H (3.65-5.03) M/mm3 Hgb 18.6 H (11.8-15.2) gm/dl Hct 55.7 H (35.5-45.6) % Lymphocytes % (Manual) 41.0 H (13.4-35.0) % Monocytes % (Manual) 10.0 H (0.0-7.3) % Monocytes # (Manual) 1.2 H (0.0-0.8) K/mm3 Sodium 135 L (137-145) mmol/L Potassium 5.1 H (3.6-5.0) mmol/L Chloride 97.6 L (98-107) mmol/L Glucose 120 H (75-100) mg/dL Troponin T 0.288 H* (0.00-0.029) ng/mL LDL Cholesterol Direct 148 H (50-130) mg/dL HDL Cholesterol 36 L (40-59) mg/dL - Imaging and Cardiology EKG: image reviewed Chest x-ray: report reviewed Assessment and Plan Assessment Non-STEMI coronary artery disease hypertension hyperlipidemia sciatica peripheral vascular disease Plan Continue heparin drip Start beta fernando, STEPHANIE inhibitor, Plavix IV morphine, cardiology consulted ontinue with outpatient medication DVT prophylaxis
[2018-08-25 22:38] LABS: INR 0.96 (0.87-1.13)
[2018-08-25 22:39] LABS: Partial Thromboplastin Time 27.7 Sec. (24.2-36.6)
[2018-08-25 23:23] LABS: Creatine Kinase MB 54.9 ng/mL (0.0-4.0)
[2018-08-26 05:37] LABS: Basophils # (Auto) 0.1 K/mm3 (0.0-0.1); Basophils % (Auto) 0.6 % (0.0-1.8); Eosinophils # (Auto) 0.3 K/mm3 (0.0-0.4); Hematocrit 49.8 % (35.5-45.6); Lymphocytes # (Auto) 4.2 K/mm3 (1.2-5.4); Lymphocytes % (Auto) 39.9 % (13.4-35.0); Mean Corpuscular HGB Conc 34 % (32-34); Mean Corpuscular Volume 94 fl (84-94); Monocytes # (Auto) 1.1 K/mm3 (0.0-0.8); Monocytes % (Auto) 10.7 % (0.0-7.3); Platelet Count 199 K/mm3 (140-440); Red Blood Count 5.31 M/mm3 (3.65-5.03); Red Cell Distribution Width 14.5 % (13.2-15.2)
[2018-08-26 06:02] LABS: BUN/Creatinine Ratio 13; Blood Urea Nitrogen 14 mg/dL (9-20); Calcium 9.1 mg/dL (8.4-10.2); Hemolysis Index 10
[2018-08-26 06:07] LABS: Creatine Kinase MB 46.9 ng/mL (0.0-4.0)
[2018-08-26] MEDS ORDERED: PLETAL PO SCH (10:00)
[2018-08-26] MEDS ORDERED: ASPIRIN PO SCH (10:00)
[2018-08-26] MEDS ORDERED: PLAVIX PO SCH ×2 (10:00)
[2018-08-26] MEDS ORDERED: HEPARIN 10,000 UNITS/10 ML ONE (10:49)
[2018-08-26] MEDS ORDERED: HEPARIN/NS 5000 UNIT/500ML(CATH LAB) 1,000 ML IR ONE (10:49)
[2018-08-26] MEDS ORDERED: NITROGLYCERIN SYRINGE 3 ML ONE (10:50)
--- NOTE | 2018-08-26 10:50 | Consultation ---
History of Present Illness Consult date: 08/26/18 Requesting physician: GAY CRESPO Consult reason: other (nstemi) History of present illness: The pt is a 57 YO male with a past medical history significant for CAD, s/p PCI, HTN, HLP and tobacco use. He is followed in our office by Dr. Naranjo. He presented with c/o chest pain since Saturday afternoon. He describes his chest pain as a constant misternal aching and burning pain which sometimes radiates down both arms. The pain is sometimes aggravated by exertion. The pain is associated with SOB. He also admits to being very fatigued with exertion over the past several weeks. He denies any palpitations, n/v, diaphoresis, dizziness or syncope. Pt has known ASA allergy (reportedly causes skin rash). He states he has been compliant with his home medication regimen, including Plavix, Pletal, lopressor, lisinopril and pravastatin. On evaluation, he reports that he is still experiencing the chest pain. He is currently on a heparin gtt. Echo done 09/03/2014 showed EF 55-60%, impaired relaxation. LHC done 10/09/2013 with s/p PCI of mid LAD with ANGELA,right radial,50% mid circ,ectatic RCA>EF 40-45% LHC done 04/03/2016 with mid crc ANGELA 3.5 x 12 Xience Alpine stent with patent mid LAD stent and 40-50% proximal LAD lesion and mild to moderate RCA disease.EF 50% Past History Past Medical History: CAD, hypertension, hyperlipidemia Past Surgical History: PTCA Social history: smoking Medications and Allergies Allergies Allergy/AdvReac Type Severity Reaction Status Date / Time acetaminophen [From Tylenol] Allergy Intermediate Rash Verified 04/10/15 08:17 aspirin Allergy Swelling Verified 04/10/15 08:17 Penicillins Allergy Rash Verified 04/10/15 08:17 Home Medications Medication Instructions Recorded Confirmed Last Taken Type Cilostazol [Pletal] 100 mg PO BID #30 tablet 02/01/17 08/26/18 Unknown Rx Clopidogrel [Plavix] 75 mg PO QDAY #30 tablet 02/01/17 08/26/18 Unknown Rx ISOSORBIDE MONOnitrate [Imdur ER] 60 mg PO QDAY #30 tablet 02/01/17 08/26/18 Unknown Rx Lisinopril [Zestril TAB] 10 mg PO QDAY #30 tablet 02/01/17 08/26/18 Unknown Rx Metoprolol [Lopressor TAB] 25 mg PO BID #60 tablet 02/01/17 08/26/18 Unknown Rx Active Meds: Active Medications Aspirin (Aspirin) 325 mg PO QDAY [facility] Atorvastatin Calcium (Lipitor) 40 mg PO QHS [facility] Cilostazol (Pletal) 100 mg PO BID [facility] Clopidogrel Bisulfate (Plavix) 75 mg PO QDAY [facility] Heparin Sodium/Sodium Chloride (Heparin/ 0.45% Nacl-25,000 Unit/500 Ml) 25,000 unit in 500 mls @ 20 mls/hr IV TITRATE ALEA; Protocol Last Titration: 08/26/18 06:15 Dose: 1,150 units/hr, 23 mls/hr Documented by: Sodium Chloride (Nacl 0.9% 500 Ml) 500 mls @ 50 mls/hr IV DIRECT ALEA Stop: 08/26/18 19:59 Isosorbide Mononitrate (Imdur) 60 mg PO QDAY [facility] Lisinopril (Zestril) 10 mg PO QDAY [facility] Metoprolol Tartrate (Lopressor) 25 mg PO BID [facility] Morphine Sulfate (Morphine) 2 mg IV Q4H PRN PRN Reason: Pain, Moderate (4-6) Ondansetron HCl (Zofran) 4 mg IV Q8H PRN PRN Reason: Nausea And Vomiting Sodium Chloride (Sodium Chloride Flush Syringe 10 Ml) 10 ml IV BID [facility] Sodium Chloride (Sodium Chloride Flush Syringe 10 Ml) 10 ml IV PRN PRN PRN Reason: LINE FLUSH Review of Systems Constitutional: no weight loss, no weight gain, no fever, no chills, no sweats Ears, nose, mouth and throat: no ear pain, no nose pain, no sinus pressure, no sinus pain Cardiovascular: chest pain, shortness of breath, dyspnea on exertion, high blood pressure, decreased exercise tolerance, no orthopnea, no palpitations, no rapid/irregular heart beat, no edema, no syncope, no lightheadedness, no leg edema Respiratory: shortness of breath, dyspnea on exertion, no cough, no congestion, no wheezing, no pain on inspiration Gastrointestinal: no abdominal pain, no nausea, no vomiting, no diarrhea, no constipation, no change in bowel habits Genitourinary Male: no dysuria, no hematuria, no flank pain, no discharge, no urinary frequency, no urinary hesitancy Musculoskeletal: no neck stiffness, no neck pain, no shooting arm pain, no arm numbness/tingling, no low back pain, no shooting leg pain Integumentary: no rash, no pruritis, no redness, no sores, no wounds Neurological: no head injury, no paralysis, no parathesias, no numbness, no tingling, no seizures, no syncope Psychiatric: no anxiety Endocrine: no cold intolerance, no heat intolerance Hematologic/Lymphatic: no easy bruising, no easy bleeding Allergic/Immunologic: no urticaria, no wheezing Physical Examination Vital Signs Temp Pulse Resp BP Pulse Ox 98.2 F 94 H 18 146/97 96 08/25/18 20:06 08/25/18 20:06 08/25/18 20:06 08/25/18 20:06 08/25/18 20:06 General appearance: no acute distress HEENT: Positive: PERRL, Normocephaly, Mucus Membranes Moist Neck: Positive: neck supple, trachea midline Cardiac: Positive: Reg Rate and Rhythm, S1/S2 Lungs: Positive: clear to auscultation Neuro: Positive: Grossly Intact Abdomen: Positive: Soft. Negative: Tender Skin: Positive: Clear. Negative: Rash, Wound Musculoskeletal: No Pain Extremities: Absent: edema Results 08/26/18 04:56 08/26/18 04:56 Cardiac Enzymes 08/25/18 08/26/18 Range/Units 22:55 04:56 CK-MB (CK-2) 54.9 H 46.9 H (0.0-4.0) ng/mL Coagulation 08/25/18 Range/Units 22:10 PT 13.4 (12.2-14.9) Sec. INR 0.96 (0.87-1.13) APTT 27.7 (24.2-36.6) Sec. Lipids 08/25/18 Range/Units 20:19 Triglycerides 104 (2-149) mg/dL Cholesterol 192 (50-199) mg/dL HDL Cholesterol 36 L (40-59) mg/dL Cholesterol/HDL Ratio 5.33 % CBC 08/25/18 08/25/18 08/26/18 Range/Units 20: 22:10 04:56 WBC 12.1 H 10.5 (4.5-11.0) K/mm3 RBC 5.94 H 5.31 H (3.65-5.03) M/mm3 Hgb 18.6 H 18.3 H 17.0 H (11.8-15.2) gm/dl Hct 55.7 H 53.3 H 49.8 H (35.5-45.6) % Plt Count 236 227 199 (140-440) K/mm3 Lymph # Drafting Engineer 4.2 Castro # 1.1 H (0.0-0.8) K/mm3 Eos # 0.3 (0.0-0.4) K/mm3 Baso # 0.1 (0.0-0.1) K/mm3 Comprehensive Metabolic Panel 08/25/18 08/26/18 Range/Units 20:19 04:56 Sodium 135 L 138 (137-145) mmol/L Potassium 5.1 H 4.0 D (3.6-5.0) mmol/L Chloride 97.6 L 100.7 (98-107) mmol/L Carbon Dioxide 24 23 (22-30) mmol/L BUN 11 14 (9-20) mg/dL Creatinine 1.0 1.1 (0.8-1.5) mg/dL Glucose 120 H 110 H (75-100) mg/dL Calcium 9.6 9.1 (8.4-10.2) mg/dL - Imaging and Cardiology Echo: pending, report reviewed (09/03/2014 showed EF 55-60%, impaired relaxation. ) Cardiac cath: pending, report reviewed (10/09/2013 with s/p PCI of mid LAD with ANGELA,right radial,50% mid circ,ectatic RCA>EF 40-45%) EKG: report reviewed, image reviewed EKG interpretations - Telemetry EKG Rhythm: Sinus Rhythm - EKG Sinus rhythms and dysrhythmias: sinus rhythm Chamber hypertrophy or enlargement: left ventricular hypertro Assessment and Plan NSTEMI Pt is presently experiencing chest pain. Coronary angiography recommended for definitive diagnosis. Indications, potential risks and benefits reviewed with pt and he is agreeable to proceed with LHC today. Await findings. F/u echo. CAD s/p PCI LHC done 10/09/2013 with s/p PCI of mid LAD with ANGELA,right radial,50% mid circ,ectatic RCA>EF 40-45% LHC done 04/03/2016 with mid crc ANGELA 3.5 x 12 Xience Alpine stent with patent mid LAD stent and 40-50% proximal LAD lesion and mild to moderate RCA disease.EF 50% ASA allergy On Plavix and Pletal at home HTN HLP Tobacco use The patient has been seen in conjunction with Dr. Davis who agrees with the assessment and plan of care.
[2018-08-26] MEDS ORDERED: NACL 0.9% 500 ML 500 ML IV SCH (11:00)
[2018-08-26] MEDS ORDERED: NACL 0.9% 500 ML 0 ML ONE (11:09)
[2018-08-26] MEDS: VERSED ONE ×2 (11:14→11:15)
[2018-08-26] MEDS: XYLOCAINE 2% INFILTRATI ONE ×2 (11:14→11:17)
[2018-08-26] MEDS: SUBLIMAZE ONE ×3 (11:14→11:57)
[2018-08-26] MEDS ORDERED: ZOFRAN ONE (11:25)
[2018-08-26] MEDS ORDERED: ANGIOMAX IV ONE (11:34)
[2018-08-26] MEDS ORDERED: NACL 0.9% 0 ML ONE (11:35)
[2018-08-26] MEDS ORDERED: NACL 0.9% 100 ML ONE (11:36)
--- NOTE | 2018-08-26 13:22 | Cardiac Catherization Report ---
LEFT HEART CATHETERIZATION/PERCUTANEOUS BALLOON ANGIOPLASTY REPORT AND STENT REPORT WITH INTRAVASCULAR ULTRASOUND REPORT CLINICAL INFORMATION: A 57-year-old gentleman who has morbid obesity, hypertension, known coronary artery disease with PCI of the LAD in 2013, PCI of the circumflex in 2016, review of the films with drug-eluting Xience 3.5 x 15. The patient had chest pain recurrence on Saturday with troponin suggestive of non-ST elevation [place] type 1. The patient has also acute diastolic dysfunction. The patient is allergic to ASPIRIN, so has been taking Pletal and Plavix. Procedure was done with moderate sedation, started at 11:15 a.m. and finished at 12:00 p.m., 45 minutes of moderate sedation, 1 mg Versed, 50 mcg of fentanyl. Procedure was performed via the right femoral artery, sterile technique, local anesthesia, done under fluoroscopy, 5-English groin sheath inserted. 2. Left system engaged with JL4 catheter. Left main is large and patent. Mild diffuse disease, bifurcates into large LAD, proximal diffuse disease with focal areas of 30-40%. Stent is patent after the stent. There is a focal 90% lesion with STACY 3 flow. Distal is patent with diffuse disease, small diagonal 1 and 2 are patent. Circumflex is a large caliber vessel, mid stent patent. OM1 is 100%. OM2 is patent. RCA has a left cusp with an anterior takeoff, so an AR mod was used to engage. This is a large dominant vessel, proximal is patent with diffuse disease in mid to distal diffuse 30-40%, bifurcates into a [id number] caliber PDA, PLV that are patent. Mild luminal irregularities. LV gram done in POLISH and CHAIREZ view shows borderline normal LV function, EF 45%, LVEDP of 16 mmHg, LV is 178. Aortic is 178/95. No gradient across the aortic valve on pullback. Percutaneous coronary intervention of the culprit OM1 engaged left system with EBU 3.5 guiding catheter. We crossed distal OM1 with a short Sargeant wire. 3. Ballooned with 2.5 x 12 balloon and 2 inflations and then restored STACY 3 flow, but it is a diffuse proximal 90% and the rest of vessel is less than 2 mm small caliber and diffusely diseased changed from 2016. 4. We set our attention to the LAD. Same EBU 3.5 percutaneous coronary intervention of the LAD with IVUS. Left system engaged with an EBU 3.5 guiding catheter. We used the same Sargeant wire into the distal LAD. 5. Intravascular ultrasound showed previous stent to be opposed and expanded with focal area of an MLA less than 2.5 mm2 with a reference vessel 3.5 x 4.0. 6. Stented overlapping with the previously deployed stent with a drug-eluting Resolute [place] 3.5 x 12 at 18 atmospheres. Excellent angiographic result, STACY 3 flow, reduced stenosis 0% from 80. 7. Coronary wire was removed. Multiple angiograms, continued 3 flow in the LAD and OM1 that is diffusely diseased, less than 2-mm vessel. 8. A 6-English guiding catheter taken out, groin sheath sewn in. No hematoma, no bleeding. SUMMARY: 1. Successful PCI of the mid LAD with a drug-eluting Resolute 3.5 x 12 overlapping, but the patient had a percutaneous balloon only angioplasty OM1 with a 2.5 x 12 balloon revealing a small diffuse less than 2 mm vessel with focal areas throughout the vessel noted. Treat medically. 2. Left main patent, LAD proximal 30% circ mid stent patent. OM2 patent, RCA proximal patent mid to distal 30-40%. PDA and PLV are patent. 3. Borderline LV function. Repeat an echocardiogram for quantification of LV function. 4. In view of ASPIRIN allergy, we will stick with Plavix 75 twice a day, high dose statin, beta fernando, STEPHANIE and nitrates. The patient is chest pain free and Angiomax was given for anticoagulation. JOB# [id number] ROB/CESIA
--- NOTE | 2018-08-26 14:03 | Event Note ---
Date: 08/26/18 S/p [facility] with PCI of LAD and POBA of OM1. Increase Plavix to 75mg BID, cont lipitor, lisinopril, lopressor, Imdur. No ASA in setting of ASA allergy. F/u kip. Saundra HALE NP / DR. SUTTON
[2018-08-26] MEDS ORDERED: NACL 0.9% 500 ML 500 ML ONE (14:08)
--- NOTE | 2018-08-26 14:27 | Progress Note ---
Assessment and Plan Assessment and plan: NSTEMI Presented with chest pain diagnosed with non-STEMI S/p [facility] with PCI of LAD with drug eluting stetn and balloon angioplasty 0M1 Plavix Allergic to aspirin beta blockers nitrates CAD s/p previous PCI hypertension Monitor BP Hyperlipidemia Statin Diabetes mellitus type 2 Fingerstick q ac and hs Full code History Interval history: patient with NSTEMI s/p cardiac cath PCI today mild chest pain Hospitalist Physical - Physical exam Narrative exam: Gen: Not in acute distress, lying in bed,obese HEENT: Normocephalic, atraumatic Neck: supple, no JVD Heart: S1 and S2 reg, no murmurs, rubs or gallop Lungs: Clear to auscultation, no crackles Abd: soft, non tender, non distended, normal BS Ext: No edema, no clubbing, no cyanosis, Neuro: AAO x 3, no focal signs, moves all ext Psych:Normal mood - Constitutional Vitals: Temp Pulse Resp BP Pulse Ox 98.4 F 79 13 151/85 96 08/26/18 07:25 08/26/18 14:00 08/26/18 14:00 08/26/18 14:00 08/26/18 14:00 General appearance: Present: no acute distress Results - Labs CBC & Chem 7: 08/26/18 04:56 08/26/18 04:56 Labs: Laboratory Last Values WBC 10.5 K/mm3 (4.5-11.0) 08/26/18 04:56 RBC 5.31 M/mm3 (3.65-5.03) H 08/26/18 04:56 Hgb 17.0 gm/dl (11.8-15.2) H 08/26/18 04:56 Hct 49.8 % (35.5-45.6) H 08/26/18 04:56 MCV 94 fl (84-94) 08/26/18 04:56 MCH 32 pg (28-32) 08/26/18 04:56 MCHC 34 % (32-34) 08/26/18 04:56 RDW 14.5 % (13.2-15.2) 08/26/18 04:56 Plt Count 199 K/mm3 (140-440) 08/26/18 04:56 Lymph % (Auto) 39.9 % (13.4-35.0) H 08/26/18 04:56 [place] % (Auto) 10.7 % (0.0-7.3) H 08/26/18 04:56 Eos % (Auto) 3.0 % (0.0-4.3) 08/26/18 04:56 Baso % (Auto) 0.6 % (0.0-1.8) 08/26/18 04:56 Lymph # 4.2 K/mm3 (1.2-5.4) 08/26/18 04:56 [place] # 1.1 K/mm3 (0.0-0.8) H 08/26/18 04:56 Eos # 0.3 K/mm3 (0.0-0.4) 08/26/18 04:56 Baso # 0.1 K/mm3 (0.0-0.1) 08/26/18 04:56 Add Manual Diff Complete 08/25/18 20:19 Total Counted 100 08/25/18 20:19 Seg Neutrophils % 45.8 % (40.0-70.0) 08/26/18 04:56 Seg Neuts % (Manual) 47.0 % (40.0-70.0) 08/25/18 20:19 Band Neutrophils % 0 % 08/25/18 20:19 Lymphocytes % (Manual) 41.0 % (13.4-35.0) H 08/25/18 20:19 Reactive Lymphs % (Man) 2.0 % 08/25/18 20:19 Monocytes % (Manual) 10.0 % (0.0-7.3) H 08/25/18 20:19 Eosinophils % (Manual) 0 % (0.0-4.3) 08/25/18 20:19 Basophils % (Manual) 0 % (0.0-1.8) 08/25/18 20:19 Metamyelocytes % 0 % 08/25/18 20:19 Myelocytes % 0 % 08/25/18 20:19 Promyelocytes % 0 % 08/25/18 20:19 Blast Cells % 0 % 08/25/18 20:19 Nucleated RBC % Not Reportable 08/25/18 20:19 Seg Neutrophils # 4.8 K/mm3 (1.8-7.7) 08/26/18 04:56 Seg Neutrophils # Man 5.7 K/mm3 (1.8-7.7) 08/25/18 20:19 Band Neutrophils # 0.0 K/mm3 08/25/18 20:19 Lymphocytes # (Manual) 5.0 K/mm3 (1.2-5.4) 08/25/18 20:19 Abs React Lymphs (Man) 0.2 K/mm3 08/25/18 20:19 Monocytes # (Manual) 1.2 K/mm3 (0.0-0.8) H 08/25/18 20:19 Eosinophils # (Manual) 0.0 K/mm3 (0.0-0.4) 08/25/18 20:19 Basophils # (Manual) 0.0 K/mm3 (0.0-0.1) 08/25/18 20:19 Metamyelocytes # 0.0 K/mm3 08/25/18 20:19 Myelocytes # 0.0 K/mm3 08/25/18 20:19 Promyelocytes # 0.0 K/mm3 08/25/18 20:19 Blast Cells # 0.0 K/mm3 08/25/18 20:19 WBC Morphology Not Reportable 08/25/18 20:19 Hypersegmented Neuts Not Reportable 08/25/18 20:19 Hyposegmented Neuts Not Reportable 08/25/18 20:19 Hypogranular Neuts Not Reportable 08/25/18 20:19 Smudge Cells Not Reportable 08/25/18 20:19 Toxic Granulation Not Reportable 08/25/18 20:19 Toxic Vacuolation Not Reportable 08/25/18 20:19 Dohle Bodies Not Reportable 08/25/18 20:19 Pelger-Huet Anomaly Not Reportable 08/25/18 20:19 Janet Rods Not Reportable 08/25/18 20:19 Platelet Estimate Appears normal 08/25/18 20:19 Clumped Platelets Not Reportable 08/25/18 20:19 Plt Clumps, EDTA Not Reportable 08/25/18 20:19 Large Platelets Not Reportable 08/25/18 20:19 Giant Platelets Not Reportable 08/25/18 20:19 Platelet Satelliting Not Reportable 08/25/18 20:19 Plt Morphology Comment Not Reportable 08/25/18 20:19 RBC Morphology Normal 08/25/18 20:19 Dimorphic RBCs Not Reportable 08/25/18 20:19 Polychromasia Not Reportable 08/25/18 20:19 Hypochromasia Not Reportable 08/25/18 20:19 Poikilocytosis Not Reportable 08/25/18 20:19 Anisocytosis Not Reportable 08/25/18 20:19 Microcytosis Not Reportable 08/25/18 20:19 Macrocytosis Not Reportable 08/25/18 20:19 Spherocytes Not Reportable 08/25/18 20:19 Pappenheimer Bodies Not Reportable 08/25/18 20:19 Sickle Cells Not Reportable 08/25/18 20:19 Target Cells Not Reportable 08/25/18 20:19 Tear Drop Cells Not Reportable 08/25/18 20:19 Ovalocytes Not Reportable 08/25/18 20:19 Helmet Cells Not Reportable 08/25/18 20:19 Vasquez-Ludington Bodies Not Reportable 08/25/18 20:19 Newberry Rings Not Reportable 08/25/18 20:19 Tristan Cells Not Reportable 08/25/18 20:19 Bite Cells Not Reportable 08/25/18 20:19 Crenated Cell Not Reportable 08/25/18 20:19 Elliptocytes Not Reportable 08/25/18 20:19 Acanthocytes (Spur) Not Reportable 08/25/18 20:19 Rouleaux Not Reportable 08/25/18 20:19 Hemoglobin C Crystals Not Reportable 08/25/18 20:19 Schistocytes Not Reportable 08/25/18 20:19 Malaria parasites Not Reportable 08/25/18 20:19 Caleb Bodies Not Reportable 08/25/18 20:19 Hem Pathologist Commnt No 08/25/18 20:19 PT 13.4 Sec. (12.2-14.9) 08/25/18 22:10 INR 0.96 (0.87-1.13) 08/25/18 22:10 APTT 27.7 Sec. (24.2-36.6) 08/25/18 22:10 Heparin Anti-Xa Level 0.19 U.I./ml (0.3-0.7) L 08/26/18 04:56 Sodium 138 mmol/L (137-145) 08/26/18 04:56 Potassium 4.0 mmol/L (3.6-5.0) D 08/26/18 04:56 Chloride 100.7 mmol/L (98-107) 08/26/18 04:56 Carbon Dioxide 23 mmol/L (22-30) 08/26/18 04:56 Anion Gap 18 mmol/L 08/26/18 04:56 BUN 14 mg/dL (9-20) 08/26/18 04:56 Creatinine 1.1 mg/dL (0.8-1.5) 08/26/18 04:56 Estimated GFR > 60 ml/min 08/26/18 04:56 BUN/Creatinine Ratio 13 % 08/26/18 04:56 Glucose 110 mg/dL (75-100) H 08/26/18 04:56 Calcium 9.1 mg/dL (8.4-10.2) 08/26/18 04:56 Total Creatine Kinase 991 units/L (55-170) H 08/26/18 04:56 CK-MB (CK-2) 46.9 ng/mL (0.0-4.0) H 08/26/18 04:56 CK-MB (CK-2) Rel Index 4.7 (0-4) H 08/26/18 04:56 Troponin T 0.429 ng/mL (0.00-0.029) H* 08/26/18 04:56 Triglycerides 104 mg/dL (2-149) 08/25/18 20:19 Cholesterol 192 mg/dL (50-199) 08/25/18 20:19 LDL Cholesterol Direct 148 mg/dL (50-130) H 08/25/18 20:19 HDL Cholesterol 36 mg/dL (40-59) L 08/25/18 20:19 Cholesterol/HDL Ratio 5.33 % 08/25/18 20:19 Active Medications - Current Medications Current Medications: Generic Name Dose Route Start Last Admin Trade Name Freq PRN Reason Stop Dose Admin Atorvastatin Calcium 80 mg 08/26/18 22:00 Lipitor PO QHS ALEA Clopidogrel Bisulfate 75 mg 08/26/18 22:00 Plavix PO BID ALEA Sodium Chloride 500 mls @ 50 mls/hr 08/26/18 11:00 Nacl 0.9% 500 Ml IV 08/26/18 20:59 DIRECT [facility] Isosorbide Mononitrate 60 mg 08/26/18 10:00 Imdur PO QDAY [facility] Lisinopril 10 mg 08/26/18 10:00 Zestril PO QDAY [facility] Metoprolol Tartrate 25 mg 08/26/18 10:00 Lopressor PO BID [facility] Morphine Sulfate 2 mg 08/25/18 22:21 Morphine IV Q4H PRN Pain, Moderate (4-6) Ondansetron HCl 4 mg 08/25/18 22:21 Zofran IV Q8H PRN Nausea And Vomiting Sodium Chloride 10 ml 08/26/18 10:00 Sodium Chloride Flush Syringe 10 Ml IV BID [facility] Sodium Chloride 10 ml 08/25/18 22:21 Sodium Chloride Flush Syringe 10 Ml IV PRN PRN LINE FLUSH
[2018-08-26] MEDS: SODIUM CHLORIDE FLUSH SYRINGE 10 ML IV SCH ×2 (15:00→21:03)
[2018-08-26] MEDS ORDERED: PLAVIX ONE (15:19)
[2018-08-26] MEDS ORDERED: ALUM-MAG HYDROX-SIMETH 200-200-20MG/5ML ONE (15:19)
[2018-08-26] MEDS: LOPRESSOR PO SCH ×2 (18:26→20:59)
[2018-08-26] MEDS: ZESTRIL PO SCH (18:54)
[2018-08-26] MEDS: IMDUR PO SCH (18:55)
[2018-08-26] MEDS: PLAVIX PO SCH (20:59)
[2018-08-27 06:07] LABS: Basophils # (Auto) 0.1 K/mm3 (0.0-0.1); Basophils % (Auto) 0.5 % (0.0-1.8); Eosinophils # (Auto) 0.3 K/mm3 (0.0-0.4); Eosinophils % (Auto) 2.8 % (0.0-4.3); Hematocrit 46.7 % (35.5-45.6); Hemoglobin 15.9 gm/dl (11.8-15.2); Lymphocytes # (Auto) 3.8 K/mm3 (1.2-5.4); Lymphocytes % (Auto) 32.1 % (13.4-35.0); Mean Corpuscular HGB Conc 34 % (32-34); Mean Corpuscular Volume 94 fl (84-94); Monocytes # (Auto) 1.3 K/mm3 (0.0-0.8); Monocytes % (Auto) 11.1 % (0.0-7.3); Platelet Count 202 K/mm3 (140-440); Red Blood Count 4.99 M/mm3 (3.65-5.03); Red Cell Distribution Width 14.4 % (13.2-15.2)
[2018-08-27 06:20] LABS: Calcium 8.6 mg/dL (8.4-10.2)
[2018-08-27 08:04] LABS: Creatine Kinase MB 26.1 ng/mL (0.0-4.0)
--- NOTE | 2018-08-27 09:12 | XRay Report ---
AP CHEST: HISTORY: Post PCI AP view of the chest demonstrates a normal mediastinal and cardiac contour with clear lungs and normal bony and soft tissue structures. IMPRESSION: Unremarkable AP chest.
[2018-08-27] MEDS: PLAVIX PO SCH (11:15)
[2018-08-27] MEDS: IMDUR PO SCH (11:16)
[2018-08-27] MEDS: SODIUM CHLORIDE FLUSH SYRINGE 10 ML IV SCH (11:16)
[2018-08-27] MEDS: LOPRESSOR PO SCH ×2 (11:17→11:23)
[2018-08-27] MEDS: ZESTRIL PO SCH ×2 (11:17→11:20)
--- NOTE | 2018-08-27 13:35 | Progress Note ---
Assessment and Plan NSTEMI s/p [facility] with PCI of mid LAD with ANGELA and POBA of OM1 yesterday. Cont plavix 75mg BID, lipitor, lisinopril, lopressor, Imdur. No ASA in setting of ASA allergy. Await echo. CAD s/p PCI s/p [facility] with PCI of mid LAD with ANGELA and POBA of OM1 yesterday. LHC done 10/09/2013 with s/p PCI of mid LAD with ANGELA,right radial,50% mid circ,ectatic RCA>EF 40-45% LHC done 04/03/2016 with mid crc ANGELA 3.5 x 12 Xience Alpine stent with patent mid LAD stent and 40-50% proximal LAD lesion and mild to moderate RCA disease.EF 50% Cont plavix 75mg BID, lipitor, lisinopril, lopressor, Imdur. No ASA in setting of ASA allergy. Await echo. ASA allergy On Plavix and Pletal at home HTN HLP Tobacco use The patient has been seen in conjunction with Dr. Davis who agrees with the assessment and plan of care. Subjective Date of service: 08/27/18 Principal diagnosis: nstemi Interval history: pt resting comfortably in bed, no current cardiac complaints. in SR on tele with ST noted overnight. Objective Last Vital Signs Temp 98.8 F 08/27/18 08:52 Pulse 90 08/27/18 11:23 Resp 20 08/27/18 08:52 BP 99/54 08/27/18 11:23 Pulse Ox 94 08/27/18 04:55 - Physical Examination General: No Apparent Distress HEENT: Positive: PERRL, Normocephaly, Mucus Membranes Moist Neck: Positive: neck supple, trachea midline Cardiac: Positive: Reg Rate and Rhythm, S1/S2 Lungs: Positive: clear to auscultation Neuro: Positive: Grossly Intact Abdomen: Positive: Soft. Negative: Tender Skin: Positive: Clear. Negative: Rash, Wound Musculoskeletal: No Pain Extremities: Absent: edema - Labs and Meds Cardiac Enzymes 08/27/18 Range/Units 05:17 CK-MB (CK-2) 26.1 H (0.0-4.0) ng/mL CBC 08/27/18 Range/Units 05:17 WBC 11.9 H (4.5-11.0) K/mm3 RBC 4.99 (3.65-5.03) M/mm3 Hgb 15.9 H (11.8-15.2) gm/dl Hct 46.7 H (35.5-45.6) % Plt Count 202 (140-440) K/mm3 Lymph # 3.8 (1.2-5.4) K/mm3 [place] # 1.3 H (0.0-0.8) K/mm3 Eos # 0.3 (0.0-0.4) K/mm3 Baso # 0.1 (0.0-0.1) K/mm3 Comprehensive Metabolic Panel 08/27/18 Range/Units 05:17 Sodium 135 L (137-145) mmol/L Potassium 4.0 (3.6-5.0) mmol/L Chloride 99.5 (98-107) mmol/L Carbon Dioxide 25 (22-30) mmol/L BUN 26 H (9-20) mg/dL Creatinine 1.5 (0.8-1.5) mg/dL Glucose 120 H (75-100) mg/dL Calcium 8.6 (8.4-10.2) mg/dL - Imaging and Cardiology EKG: report reviewed, image reviewed Echo: pending, report reviewed (09/03/2014 showed EF 55-60%, impaired relaxation. ) Cardiac cath: pending, report reviewed (10/09/2013 with s/p PCI of mid LAD with ANGELA,right radial,50% mid circ,ectatic RCA>EF 40-45%) - EKG Sinus rhythms and dysrhythmias: sinus rhythm Chamber hypertrophy or enlargement: left ventricular hypertro
[2018-08-27] MEDS ORDERED: IMDUR PO SCH (13:36)
--- NOTE | 2018-08-27 16:32 | Discharge Summary ---
Providers - Providers Date of Admission: 08/25/18 22:21 Date of discharge: 08/27/18 Attending physician: ALTAF FINLEY 08/25/18 22:21 Consult to Physician [CONS] Urgent Comment: Consulting Provider: RIMMA BILLY Physician Instructions: Reason For Exam: nstmi 08/26/18 Consult to Cardiac Rehabilitation [CONS] Routine Reason For Exam: post pci [facility] Hospitalization Condition: Fair Hospital course: Patient is 57 yo with hypertension, hyperlipidemia, coronary artery disease, s ciatica, peripheral vascular disease presented to ED with chest pain. He described the pain as squeezing, constant, intensity 7/10, no radiation, took 2 nitroglycerin at home with some relief. He was seen and evaluated in ED. Troponin was elevated, he had EKG changes. He was diagnosed with NSTEMI. He was given Plavix,admitted and had cardiac catheterization with PCI of LAD with drug eluting stent and balloon angioplasty 0M1. He was treated with Plavix, Beta blockers.Chest pain resolved, so he was discharged home on 08/27/18. Total time spent on discharge, 32 mins. Disposition: DC-01 TO HOME OR SELFCARE - Discharge Diagnoses (1) Obesity (BMI 30-39.9) Status: Acute (2) Hyperlipemia Status: Acute (3) Hypertensive emergency Status: Acute (4) Non-ST elevation MA (NSTEMI) Status: Acute (5) Tobacco abuse Status: Acute Comment: Smoking cessation counseling was provided (6) CAD (coronary artery disease) Status: Chronic Qualifiers: Coronary Disease-Associated Artery/Lesion type: [place] artery [place] vs. transplanted heart: [place] heart Associated angina: angina presence unspecified Qualified Code(s): I25.10 - Atherosclerotic heart disease of [place] coronary artery without angina pectoris Core Measure Documentation - Palliative Care Palliative Care/ Comfort Measures: Not Applicable - Core Measures Any of the following diagnoses?: acute MA - Acute MA Discharge Requirements Aspirin at discharge: No Reason for no aspirin on DC: Allergy or sensitivity STEPHANIE/ARB for LVSD if EF <40%: Yes Beta fernando at discharge: Yes Statin for LDL = or >100 mg/dl on DC: Yes Exam - Constitutional Vitals: Temp Pulse Resp BP Pulse Ox 98.8 F 90 20 99/54 97 08/27/18 08:52 08/27/18 11:23 08/27/18 08:52 08/27/18 11:23 08/27/18 11:15 Plan Diet: low fat, low cholesterol, low salt Additional Instructions: 1.Follow up with PCP or [facility] in 1 week. 2.Follow up with Dr. Georgia Davis in 1 week. 3.No strenous activity unless cleared by cardiology Follow up with: TALIA BAILONEVERGREEN MD [facility] [Primary Care Provider] - 3-5 Days Prescriptions: ISOSORBIDE MONOnitrate [Imdur ER] 30 mg PO DAILY #30 tab.er.24h AtorvaSTATin [Lipitor] 80 mg PO QHS #60 tablet Clopidogrel [Plavix] 75 mg PO BID #60 tablet Tramadol HCl [Ultram] 50 mg PO Q8H PRN #10 tablet PRN Reason: Pain , Severe (7-10)
[2018-08-27 17:15] VITALS: BP 101/56
== END 2018-08-27 19:05 | disposition home or self-care (01) | DRG 247 ==
LOC: ED 19:53 → 4A 22:21
PROVIDERS: ADMIT Internal Medicine; ATTEND Internal Medicine
PROC: 4A023N7 Measurement of Cardiac Sampling and Pressure, Left Heart, Percutaneous Approach (ICD-10-PCS; principal; 2018-08-26)
PROC: 027034Z Dilation of Coronary Artery, One Artery with Drug-eluting Intraluminal Device, Percutaneous Approach (ICD-10-PCS; 2018-08-26)
PROC: 02703ZZ Dilation of Coronary Artery, One Artery, Percutaneous Approach (ICD-10-PCS; 2018-08-26)
PROC: B2111ZZ Fluoroscopy of Multiple Coronary Arteries using Low Osmolar Contrast (ICD-10-PCS; 2018-08-26)
PROC: B2151ZZ Fluoroscopy of Left Heart using Low Osmolar Contrast (ICD-10-PCS; 2018-08-26)
PROC: B241ZZ3 Ultrasonography of Multiple Coronary Arteries, Intravascular (ICD-10-PCS; 2018-08-26)
DX: I21.4 Non-ST elevation (NSTEMI) myocardial infarction (principal); I25.10 Atherosclerotic heart disease of native coronary artery without angina pectoris; E78.5 Hyperlipidemia, unspecified; F17.200 Nicotine dependence, unspecified, uncomplicated; E11.51 Type 2 diabetes mellitus with diabetic peripheral angiopathy without gangrene; M54.30 Sciatica, unspecified side; I11.0 Hypertensive heart disease with heart failure; I50.9 Heart failure, unspecified; M19.90 Unspecified osteoarthritis, unspecified site; Z88.6 Allergy status to analgesic agent; Z88.0 Allergy status to penicillin; Z79.899 Other long term (current) drug therapy; Z90.49 Acquired absence of other specified parts of digestive tract; Z82.49 Family history of ischemic heart disease and other diseases of the circulatory system; Z87.442 Personal history of urinary calculi; Z95.5 Presence of coronary angioplasty implant and graft
CPT/HCPCS: 36415; 71045; 71046; 80048; 80061; 82550; 82553; 84484; 85007; 85014; 85018; 85025; 85049; 85347; 85520; 85610; 85730; 92921; 92928; 92978; 93005; 93010; 93306; 93458; 96374; 96375; 99406; G0378; A9270-GY; C1725; C1753; C1769; C1874; C1887; C1894; C9600; J0583; J1644; J2250; J2270; J2405; J3010; J7040; Q9967

== ENCOUNTER 2019-07-12 22:34 | Emergency (ER) | payer SELFPAY ==
[2019-07-13] MEDS ORDERED: traMADol 50 MG TAB PO ONE (02:16)
[2019-07-13] MEDS ORDERED: predniSONE 20 MG TAB PO ONE (02:17)
--- NOTE | 2019-07-13 02:56 | Emergency Department Report ---
ED General Adult HPI - General Chief complaint: Earache Stated complaint: RIGHT OUTER EAR INFECTED/BACK PAIN Source: patient Mode of arrival: Ambulatory Limitations: No Limitations - History of Present Illness Initial comments: Patient is a 58-year-old -[place] male with a history of chronic low back pain, coronary artery disease status post PTCA stents, hypertension who presents to the ED with complaint of acute onset persistent severe painful itchy erythematous ulcerated bilateral earlobe rashes for the last 2 weeks, worse in the last 4 days. Patient states that he has not been able to sleep because of persistent pain and itching of the earlobes bilaterally. Patient also complains of worsening low back pain after he ran out of his medications at home. Patient denies fever, chills, nausea, vomiting, chest pain, shortness of breath, traumatic injury, headache, dizziness, cough, heavy lifting, fall or numbness and tingling of lower extremities bilaterally. MD Complaint: Painful ulcerated bilateral ear lobe rashes; worsening chronic low back arron -: Gradual, week(s) (2) Location: face (bilateral ear lobes) Radiation: non-radiation Severity scale (0 -10): 10 Quality: burning, aching, sharp Consistency: constant Improves with: none Worsens with: none Associated Symptoms: denies other symptoms. denies: confusion, chest pain, cough, diaphoresis, fever/chills, headaches, loss of appetite, malaise, nausea/vomiting, rash, seizure, shortness of breath, syncope, weakness, other Treatments Prior to Arrival: none - Related Data Previous Rx's Medication Instructions Recorded Last Taken Type Clopidogrel [Plavix] 75 mg PO QDAY #30 tablet 02/01/17 Unknown Rx Metoprolol [Lopressor TAB] 25 mg PO BID #60 tablet 02/01/17 Unknown Rx cilostazoL [Pletal] 100 mg PO BID #30 tablet 02/01/17 Unknown Rx lisinopriL [Zestril TAB] 10 mg PO QDAY #30 tablet 02/01/17 Unknown Rx AtorvaSTATin [Lipitor] 80 mg PO QHS #60 tablet 08/27/18 Unknown Rx Clopidogrel [Plavix] 75 mg PO BID #60 tablet 08/27/18 Unknown Rx ISOSORBIDE MONOnitrate [Imdur ER] 30 mg PO DAILY #30 tab.er.24h 08/27/18 Unknown Rx Tramadol HCl [Ultram] 50 mg PO Q8H PRN #10 tablet 08/27/18 Unknown Rx Clindamycin [Clindamycin CAP] 300 mg PO Q8HR #60 capsule 07/13/19 Unknown Rx Griseofulvin Ultramicrosize 250 mg PO DAILY #14 tablet 07/13/19 Unknown Rx diphenhydrAMINE [Benadryl CAP] 25 mg PO QHS PRN #30 capsule 07/13/19 Unknown Rx traMADoL [Ultram] 50 mg PO Q6HR PRN #15 tablet 07/13/19 Unknown Rx Allergies Allergy/AdvReac Type Severity Reaction Status Date / Time acetaminophen [From Tylenol] Allergy Intermediate Rash Verified 04/10/15 08:17 aspirin Allergy Swelling Verified 04/10/15 08:17 Penicillins Allergy Rash Verified 04/10/15 08:17 citrus Allergy Rash Uncoded 08/27/18 11:32 tomato Allergy Rash Uncoded 08/27/18 11:33 ED Review of Systems ROS: Stated complaint: RIGHT OUTER EAR INFECTED/BACK PAIN Other details as noted in HPI Constitutional: denies: chills, fever Eyes: denies: eye pain, eye discharge, vision change ENT: other (bilateral ear lobe itchy erythematous ulcerated rashes with pain). denies: ear pain, throat pain Respiratory: denies: cough, shortness of breath, wheezing Cardiovascular: denies: chest pain, palpitations Endocrine: no symptoms reported Gastrointestinal: denies: abdominal pain, nausea, diarrhea Genitourinary: denies: urgency, dysuria Musculoskeletal: back pain, arthralgia. denies: joint swelling Skin: rash (mildly erythematous ulcerated rashes with purulent discharge bilate rally on the earlobes), change in color, pruritus. denies: lesions Neurological: denies: headache, weakness, paresthesias Psychiatric: denies: anxiety, depression Hematological/Lymphatic: denies: easy bleeding, easy bruising ED Past Medical Hx - Past Medical History Previous Medical History?: Yes Hx Hypertension: Yes Hx CVA: No Hx Heart Attack/AMI: Yes Hx Congestive Heart Failure: Yes Hx Diabetes: No Hx Deep Vein Thrombosis: No Hx Pulmonary Embolism: No Hx GERD: No Hx Liver Disease: No Hx Renal Disease: Yes (patient states one of his kidneys was not working but has resolved now) Hx Sickle Cell Disease: No Hx Arthritis: Yes Hx Headaches / Migraines: No Hx Seizures: No Hx Kidney Stones: Yes (2016) Hx Psychiatric Treatment: No Hx Asthma: No Hx COPD: No Hx Tuberculosis: No Hx Dementia: No Hx HIV: No Additional medical history: CAD, ECZEMA, Chronic Back pain. HIGH CHOLESTEROL - Surgical History Past Surgical History?: Yes Hx Coronary Stent: Yes (x2) Hx Open Heart Surgery: No Hx Pacemaker: No Hx Internal Defibrillator: No Hx Cholecystectomy: Yes (2008) Hx Appendectomy: No Hx Breast Surgery: No Additional Surgical History: gallbldder 2007, Left knee. - Social History Smoking Status: Never Smoker Substance Use Type: None - Medications Home Medications: Home Medications Medication Instructions Recorded Confirmed Last Taken Type Clopidogrel [Plavix] 75 mg PO QDAY #30 tablet 02/01/17 08/26/18 Unknown Rx Metoprolol [Lopressor TAB] 25 mg PO BID #60 tablet 02/01/17 08/26/18 Unknown Rx cilostazoL [Pletal] 100 mg PO BID #30 tablet 02/01/17 08/26/18 Unknown Rx lisinopriL [Zestril TAB] 10 mg PO QDAY #30 tablet 02/01/17 08/26/18 Unknown Rx AtorvaSTATin [Lipitor] 80 mg PO QHS #60 tablet 08/27/18 Unknown Rx Clopidogrel [Plavix] 75 mg PO BID #60 tablet 08/27/18 Unknown Rx ISOSORBIDE MONOnitrate [Imdur ER] 30 mg PO DAILY #30 tab.er.24h 08/27/18 Unknown Rx Tramadol HCl [Ultram] 50 mg PO Q8H PRN #10 tablet 08/27/18 Unknown Rx Clindamycin [Clindamycin CAP] 300 mg PO Q8HR #60 capsule 07/13/19 Unknown Rx Griseofulvin Ultramicrosize 250 mg PO DAILY #14 tablet 07/13/19 Unknown Rx diphenhydrAMINE [Benadryl CAP] 25 mg PO QHS PRN #30 capsule 07/13/19 Unknown Rx traMADoL [Ultram] 50 mg PO Q6HR PRN #15 tablet 07/13/19 Unknown Rx ED Physical Exam - General Limitations: No Limitations General appearance: alert, in no apparent distress - Head Head exam: Present: atraumatic, normocephalic, normal inspection - Eye Eye exam: Present: normal appearance, PERRL, EOMI Pupils: Present: normal accommodation - ENT ENT exam: Present: normal exam, normal orophraynx, mucous membranes moist, other (Mildly erythematous ulcerated dry scaly rashes with purulent discharge and tenderness bilaterally on the earlobes) - Neck Neck exam: Present: normal inspection, full ROM - Respiratory Respiratory exam: Present: normal lung sounds bilaterally. Absent: respiratory distress, wheezes, rales, stridor, decreased breath sounds - Cardiovascular Cardiovascular Exam: Present: regular rate, normal rhythm, normal heart sounds. Absent: systolic murmur, diastolic murmur, rubs, gallop - GI/Abdominal GI/Abdominal exam: Present: soft, normal bowel sounds. Absent: tenderness, guarding, rebound, hyperactive bowel sounds, hypoactive bowel sounds, organomegaly - Extremities Exam Extremities exam: Present: normal inspection, full ROM, normal capillary refill - Back Exam Back exam: Present: normal inspection, full ROM, tenderness (Palpable lumbosacral paraspinal musculoskeletal tenderness), muscle spasm, paraspinal tenderness - Neurological Exam Neurological exam: Present: alert, oriented X3, CN II-XII intact, normal gait, reflexes normal - Psychiatric Psychiatric exam: Present: normal affect, normal mood - Skin Skin exam: Present: warm, dry, intact, normal color, rash, erythema, other (Mildly erythematous maculopapular ulcerated dry scaly rashes bilaterally on the earlobes with purulent discharge) ED Course Vital Signs 07/12/19 07/13/19 22:50 02:21 Temperature 98.5 F Pulse Rate 90 Respiratory 18 20 Rate Blood Pressure 181/91 O2 Sat by Pulse 97 Oximetry ED Medical Decision Making - Medical Decision Making This is a 58-year-old male with a history of chronic low back pain who presented to the ED with worsening low back pain and severely painful erythematous maculopapular ulcerated vesicular dry scaly rashes on the earlobes bilaterally. In the ED, patient is alert and oriented x3 and is not in distress but appears to be in discomfort. Patient was treated for pain in the ED and was discharged home on oral antifungal, and antibiotics as well as pain medications and was advised to follow-up with his primary care physician in 7 to 10 days for reevaluation or return to the ED immediately if symptoms get worse. - Differential Diagnosis Tinea corporis; cellulitis; impetigo; chronic back pain; muscle spasm Critical care attestation.: If time is entered above; I have spent that time in minutes in the direct care of this critically ill patient, excluding procedure time. ED Disposition Clinical Impression: Tinea corporis, Impetigo any site, Acute exacerbation of chronic low back pain, Spasm of muscle of lower back Cellulitis of earlobe Qualifiers: Laterality: bilateral Qualified Code(s): H60.13 - Cellulitis of external ear, bilateral Disposition: TO HOME OR SELFCARE Is pt being admited?: No Does the pt Need Aspirin: No Condition: Stable Instructions: Cellulitis (ED), Tinea Corporis (ED), Muscle Spasm (ED), Chronic Back Pain (ED) Additional Instructions: Take medication with food, drink plenty of fluids and follow-up with your primary care physician in 7 to 10 days for reevaluation. Return to the ED immediately if symptoms get worse. Prescriptions: diphenhydrAMINE [Benadryl CAP] 25 mg PO QHS PRN #30 capsule PRN Reason: Itching Clindamycin [Clindamycin CAP] 300 mg PO Q8HR #60 capsule Griseofulvin Ultramicrosize 250 mg PO DAILY #14 tablet traMADoL [Ultram] 50 mg PO Q6HR PRN #15 tablet PRN Reason: Pain Referrals: CARON GRAJEDA MD [Staff Physician] - 7-10 days Time of Disposition: 03:00 Print Language: UKRAINIAN
[2019-07-13 04:38] VITALS: BP 151/91
== END 2019-07-13 03:30 | disposition home or self-care (01) ==
LOC: ED 22:34
DX: H60.13 Cellulitis of external ear, bilateral (principal); B35.4 Tinea corporis; L01.00 Impetigo, unspecified; G89.29 Other chronic pain; M54.5 Low back pain; M62.830 Muscle spasm of back; I11.0 Hypertensive heart disease with heart failure; I50.9 Heart failure, unspecified; I25.2 Old myocardial infarction
CPT/HCPCS: 99282; J7512

== ENCOUNTER 2019-07-27 17:23 | Emergency (ER) | payer SELFPAY ==
[2019-07-27 18:21] VITALS: BP 180/95
--- NOTE | 2019-07-27 18:24 | Emergency Department Report ---
- General Chief complaint: Earache Stated complaint: EAR PAIN Time Seen by Provider: 07/27/19 18:19 Source: patient Mode of arrival: Ambulatory Limitations: No Limitations - History of Present Illness Initial comments: This is a 58-year-old male nontoxic well in appearance with no signs of distress presents to the ED with complaint of right earlobe redness and crusting. Patient was seen a few weeks and has been taking medications with no signifiant changes. Patient denies any swelling, pus, or drainage. Patient denies any other symptoms. Denies any fever, chills, headache, nausea, vomiting, chest pain or SOB. Denies any other complaints. -: week(s) Severity: mild Consistency: constant Improves with: none Worsens with: none Associated symptoms: denies other symptoms - Related Data Previous Rx's Medication Instructions Recorded Last Taken Type Clopidogrel [Plavix] 75 mg PO QDAY #30 tablet 02/01/17 Unknown Rx Metoprolol [Lopressor TAB] 25 mg PO BID #60 tablet 02/01/17 Unknown Rx cilostazoL [Pletal] 100 mg PO BID #30 tablet 02/01/17 Unknown Rx lisinopriL [Zestril TAB] 10 mg PO QDAY #30 tablet 02/01/17 Unknown Rx AtorvaSTATin [Lipitor] 80 mg PO QHS #60 tablet 08/27/18 Unknown Rx Clopidogrel [Plavix] 75 mg PO BID #60 tablet 08/27/18 Unknown Rx ISOSORBIDE MONOnitrate [Imdur ER] 30 mg PO DAILY #30 tab.er.24h 08/27/18 Unknown Rx Tramadol HCl [Ultram] 50 mg PO Q8H PRN #10 tablet 08/27/18 Unknown Rx Clindamycin [Clindamycin CAP] 300 mg PO Q8HR #60 capsule 07/13/19 Unknown Rx Griseofulvin Ultramicrosize 250 mg PO DAILY #14 tablet 07/13/19 Unknown Rx diphenhydrAMINE [Benadryl CAP] 25 mg PO QHS PRN #30 capsule 07/13/19 Unknown Rx traMADoL [Ultram] 50 mg PO Q6HR PRN #15 tablet 07/13/19 Unknown Rx Doxycycline Hyclate [Doxycycline 100 mg PO Q12HR #14 tab 07/27/19 Unknown Rx Hyclate TAB] Allergies Allergy/AdvReac Type Severity Reaction Status Date / Time acetaminophen [From Tylenol] Allergy Intermediate Rash Verified 04/10/15 08:17 aspirin Allergy Swelling Verified 04/10/15 08:17 Penicillins Allergy Rash Verified 04/10/15 08:17 citrus Allergy Rash Uncoded 08/27/18 11:32 tomato Allergy Rash Uncoded 08/27/18 11:33 Abscess Boil HPI - HPI Chief Complaint: Earache Stated Complaint: EAR PAIN Time Seen by Provider: 07/27/19 18:19 Home Medications: Previous Rx's Medication Instructions Recorded Last Taken Type Clopidogrel [Plavix] 75 mg PO QDAY #30 tablet 02/01/17 Unknown Rx Metoprolol [Lopressor TAB] 25 mg PO BID #60 tablet 02/01/17 Unknown Rx cilostazoL [Pletal] 100 mg PO BID #30 tablet 02/01/17 Unknown Rx lisinopriL [Zestril TAB] 10 mg PO QDAY #30 tablet 02/01/17 Unknown Rx AtorvaSTATin [Lipitor] 80 mg PO QHS #60 tablet 08/27/18 Unknown Rx Clopidogrel [Plavix] 75 mg PO BID #60 tablet 08/27/18 Unknown Rx ISOSORBIDE MONOnitrate [Imdur ER] 30 mg PO DAILY #30 tab.er.24h 08/27/18 Unknown Rx Tramadol HCl [Ultram] 50 mg PO Q8H PRN #10 tablet 08/27/18 Unknown Rx Clindamycin [Clindamycin CAP] 300 mg PO Q8HR #60 capsule 07/13/19 Unknown Rx Griseofulvin Ultramicrosize 250 mg PO DAILY #14 tablet 07/13/19 Unknown Rx diphenhydrAMINE [Benadryl CAP] 25 mg PO QHS PRN #30 capsule 07/13/19 Unknown Rx traMADoL [Ultram] 50 mg PO Q6HR PRN #15 tablet 07/13/19 Unknown Rx Doxycycline Hyclate [Doxycycline 100 mg PO Q12HR #14 tab 07/27/19 Unknown Rx Hyclate TAB] Allergies/Adverse Reactions: Allergies Allergy/AdvReac Type Severity Reaction Status Date / Time acetaminophen [From Tylenol] Allergy Intermediate Rash Verified 04/10/15 08:17 aspirin Allergy Swelling Verified 04/10/15 08:17 Penicillins Allergy Rash Verified 04/10/15 08:17 citrus Allergy Rash Uncoded 08/27/18 11:32 tomato Allergy Rash Uncoded 08/27/18 11:33 ED Review of Systems ROS: Stated complaint: EAR PAIN Other details as noted in HPI Constitutional: denies: chills, fever Eyes: denies: eye pain, eye discharge, vision change ENT: denies: ear pain, throat pain Respiratory: denies: cough, shortness of breath, wheezing Cardiovascular: denies: chest pain, palpitations Endocrine: no symptoms reported Gastrointestinal: denies: abdominal pain, nausea, diarrhea Genitourinary: denies: urgency, dysuria Musculoskeletal: denies: back pain, joint swelling, arthralgia Skin: denies: rash, lesions Neurological: denies: headache, weakness, paresthesias Psychiatric: denies: anxiety, depression Hematological/Lymphatic: denies: easy bleeding, easy bruising ED Past Medical Hx - Past Medical History Previous Medical History?: Yes Hx Hypertension: Yes Hx CVA: No Hx Heart Attack/AMI: Yes Hx Congestive Heart Failure: Yes Hx Diabetes: No Hx Deep Vein Thrombosis: No Hx Pulmonary Embolism: No Hx GERD: No Hx Liver Disease: No Hx Renal Disease: Yes (patient states one of his kidneys was not working but has resolved now) Hx Sickle Cell Disease: No Hx Arthritis: Yes Hx Headaches / Migraines: No Hx Seizures: No Hx Kidney Stones: Yes (2016) Hx Psychiatric Treatment: No Hx Asthma: No Hx COPD: No Hx Tuberculosis: No Hx Dementia: No Hx HIV: No Additional medical history: CAD, ECZEMA, Chronic Back pain. HIGH CHOLESTEROL - Surgical History Past Surgical History?: Yes Hx Coronary Stent: Yes (x2) Hx Open Heart Surgery: No Hx Pacemaker: No Hx Internal Defibrillator: No Hx Cholecystectomy: Yes (2007) Hx Appendectomy: No Hx Breast Surgery: No Additional Surgical History: gallbldder 2008, Left knee. - Social History Smoking Status: Never Smoker Substance Use Type: None - Medications Home Medications: Home Medications Medication Instructions Recorded Confirmed Last Taken Type Clopidogrel [Plavix] 75 mg PO QDAY #30 tablet 02/01/17 08/26/18 Unknown Rx Metoprolol [Lopressor TAB] 25 mg PO BID #60 tablet 02/01/17 08/26/18 Unknown Rx cilostazoL [Pletal] 100 mg PO BID #30 tablet 02/01/17 08/26/18 Unknown Rx lisinopriL [Zestril TAB] 10 mg PO QDAY #30 tablet 02/01/17 08/26/18 Unknown Rx AtorvaSTATin [Lipitor] 80 mg PO QHS #60 tablet 08/27/18 Unknown Rx Clopidogrel [Plavix] 75 mg PO BID #60 tablet 08/27/18 Unknown Rx ISOSORBIDE MONOnitrate [Imdur ER] 30 mg PO DAILY #30 tab.er.24h 08/27/18 Unknown Rx Tramadol HCl [Ultram] 50 mg PO Q8H PRN #10 tablet 08/27/18 Unknown Rx Clindamycin [Clindamycin CAP] 300 mg PO Q8HR #60 capsule 07/13/19 Unknown Rx Griseofulvin Ultramicrosize 250 mg PO DAILY #14 tablet 07/13/19 Unknown Rx diphenhydrAMINE [Benadryl CAP] 25 mg PO QHS PRN #30 capsule 07/13/19 Unknown Rx traMADoL [Ultram] 50 mg PO Q6HR PRN #15 tablet 07/13/19 Unknown Rx Doxycycline Hyclate [Doxycycline 100 mg PO Q12HR #14 tab 07/27/19 Unknown Rx Hyclate TAB] ED Physical Exam - General Limitations: No Limitations General appearance: alert, in no apparent distress - Head Head exam: Present: atraumatic, normocephalic - Expanded ENT Exam Expanded Ear exam: Present: normal external inspection Mouth exam: Present: normal external inspection. Absent: drooling, trismus, muffled voice Teeth exam: Present: normal inspection Throat exam: Positive: normal inspection - Neck Neck exam: Present: normal inspection, full ROM. Absent: tenderness, meningismus, lymphadenopathy - Respiratory Respiratory exam: Present: normal lung sounds bilaterally. Absent: respiratory distress, wheezes, rales, rhonchi, stridor, chest wall tenderness, accessory muscle use, decreased breath sounds, prolonged expiratory - Cardiovascular Cardiovascular Exam: Present: regular rate, normal rhythm, normal heart sounds. Absent: bradycardia, tachycardia, irregular rhythm, systolic murmur, diastolic murmur, rubs, gallop - Other Other exam information: left earlobe redness and crusting. no swelling or abscess noted. ED Course Vital Signs 07/27/19 18:19 Temperature 98.8 F Pulse Rate 87 Respiratory 20 Rate Blood Pressure 180/95 O2 Sat by Pulse 95 Oximetry - Reevaluation(s) Reevaluation #1: 07/27/19 18:24 Patient is speaking in full sentences with no signs of distress noted. ED Medical Decision Making - Medical Decision Making 58-year-old male that presents with cellulitis of right upper lobe. I will started patient on Doxy. Stated has finished clinda and antifungal but has not resolved. Patient was instructed to Follow-up with a primary care doctor in 3-5 days or if symptoms worsen and continue return to emergency room as soon as possible. At time of discharge, the patient does not seem toxic or ill in appearance. No acute signs of distress noted. Patient agrees to discharge treatment plan of care. No further questions noted by the patient. Critical care attestation.: If time is entered above; I have spent that time in minutes in the direct care of this critically ill patient, excluding procedure time. ED Disposition Clinical Impression: Cellulitis of earlobe Qualifiers: Laterality: right Qualified Code(s): H60.11 - Cellulitis of right external ear Disposition: DC-01 TO HOME OR SELFCARE Is pt being admited?: No Does the pt Need Aspirin: No Condition: Stable Instructions: Cellulitis (ED) Additional Instructions: Follow-up with a primary care doctor in 3-5 days or if symptoms worsen and continue return to emergency room as soon as possible. Prescriptions: Doxycycline Hyclate [Doxycycline Hyclate TAB] 100 mg PO Q12HR #14 tab Referrals: NOREEN JARAMILLO MD [Primary Care Provider] - 3-5 Days CARON GRAJEDA MD [Staff Physician] - 3-5 Days [facility] [Provider Group] - 3-5 Days
== END 2019-07-27 18:46 | disposition home or self-care (01) ==
LOC: ED 17:23
DX: H60.11 Cellulitis of right external ear (principal); I10 Essential (primary) hypertension; M19.90 Unspecified osteoarthritis, unspecified site; I25.2 Old myocardial infarction; Z90.49 Acquired absence of other specified parts of digestive tract; Z98.890 Other specified postprocedural states; Z79.899 Other long term (current) drug therapy; Z88.0 Allergy status to penicillin; Z88.4 Allergy status to anesthetic agent; Z88.8 Allergy status to other drugs, medicaments and biological substances
CPT/HCPCS: 99282

== ENCOUNTER 2020-02-25 09:14 | Inpatient (IN) | payer OTHER ==
[2020-02-25] MEDS ORDERED: traMADol 50 MG TAB PO ONE (09:37)
--- NOTE | 2020-02-25 10:01 | Emergency Department Report ---
ED Chest Pain HPI - General Chief Complaint: Chest Pain Stated Complaint: FELL OFF RAMP/CP Time Seen by Provider: 02/25/20 09:30 Source: patient Mode of arrival: Ambulatory Limitations: No Limitations - History of Present Illness Initial Comments: This patient presents to the emergency department with 2 complaints. First, the patient complains of pain to the right hand and shoulder that has been going on for the past 4 days, Saturday, since the patient fell off a ramp from about 4 feet up. He fell onto that right side but denies hitting his head or any loss of consciousness. Patient states that the areas were initially just sore but the pain has been increasing and is currently a 10 out of 10 in intensity. The pain worsens with any movement but he does admit to full range of motion. He took some tramadol that evening with some transient relief. He denies any numbness, paresthesias, lacerations. Secondly, the patient has developed some chest pain, "across my chest", that started earlier this morning. It is associated with some mild shortness of breath. No known aggravating or alleviating factors for the chest pain. It is currently 7 out of 10 in intensity. He has not taken anything for the symptoms prior to presentation today. He has a past medical history that includes arthritis, CHF, coronary artery disease with 4 cardiac stents, hypertension, high cholesterol. No recent travel or sick contacts at home. He does not have a primary care physician. 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 He denies any fever, nausea, vomiting, abdominal pain, diaphoresis. He does feel that his legs are slightly swollen, left greater than right. Severity scale (0 -10): 7 - Related Data Home Medications Medication Instructions Recorded Confirmed Last Taken Clobetasol 0.05% 5 g BID 02/25/20 02/25/20 Unknown Ezetimibe [Zetia] 10 mg PO QHS 02/25/20 02/25/20 Unknown Previous Rx's Medication Instructions Recorded Last Taken Type Clopidogrel [Plavix] 75 mg PO QDAY #30 tablet 02/01/17 Unknown Rx Metoprolol [Lopressor TAB] 25 mg PO BID #60 tablet 02/01/17 Unknown Rx lisinopriL [Zestril TAB] 10 mg PO QDAY #30 tablet 02/01/17 Unknown Rx Tramadol HCl [Ultram] 50 mg PO Q8H PRN #10 tablet 08/27/18 Unknown Rx Allergies Allergy/AdvReac Type Severity Reaction Status Date / Time acetaminophen [From Tylenol] Allergy Intermediate Rash Verified 04/10/15 08:17 aspirin Allergy Swelling Verified 04/10/15 08:17 Penicillins Allergy Rash Verified 04/10/15 08:17 citrus Allergy Rash Uncoded 08/27/18 11:32 tomato Allergy Rash Uncoded 08/27/18 11:33 Heart Score - HEART Score History: Moderately suspicious EKG: Non-specific Age: 45-65 Risk factors: > 3 risk factors or hx of atherosclerotic disease Troponin: 1-3x normal limit HEART Score: 6 - Critical Actions Critical Actions: 4-6 pts:12-16.6% risk of adverse cardiac event. Should be admitted ED Review of Systems ROS: Stated complaint: FELL OFF RAMP/CP Other details as noted in HPI Comment: All other systems reviewed and negative Constitutional: denies: chills, fever Eyes: denies: eye pain, vision change ENT: denies: ear pain, throat pain Respiratory: shortness of breath. denies: cough Cardiovascular: chest pain, edema. denies: palpitations Gastrointestinal: denies: abdominal pain, vomiting Genitourinary: denies: dysuria, discharge Musculoskeletal: arthralgia. denies: joint swelling Skin: denies: rash, lesions Neurological: denies: headache, weakness ED Past Medical Hx - Past Medical History Previous Medical History?: Yes Hx Hypertension: Yes Hx CVA: No Hx Heart Attack/AMI: Yes Hx Congestive Heart Failure: Yes Hx Diabetes: No Hx Deep Vein Thrombosis: No Hx Pulmonary Embolism: No Hx GERD: No Hx Liver Disease: No Hx Renal Disease: Yes (patient states one of his kidneys was not working but has resolved now) Hx Sickle Cell Disease: No Hx Arthritis: Yes Hx Headaches / Migraines: No Hx Seizures: No Hx Kidney Stones: Yes (2016) Hx Psychiatric Treatment: No Hx Asthma: No Hx COPD: No Hx Tuberculosis: No Hx Dementia: No Hx HIV: No Additional medical history: CAD, ECZEMA, Chronic Back pain. HIGH CHOLESTEROL - Surgical History Past Surgical History?: Yes Hx Coronary Stent: Yes (x2) Hx Open Heart Surgery: No Hx Pacemaker: No Hx Internal Defibrillator: No Hx Cholecystectomy: Yes (2007) Hx Appendectomy: No Hx Breast Surgery: No Additional Surgical History: gallbldder 2007, Left knee. - Social History Smoking Status: Current Every Day Smoker Substance Use Type: None - Medications Home Medications: Home Medications Medication Instructions Recorded Confirmed Last Taken Type Clopidogrel [Plavix] 75 mg PO QDAY #30 tablet 02/01/17 02/25/20 Unknown Rx Metoprolol [Lopressor TAB] 25 mg PO BID #60 tablet 02/01/17 02/25/20 Unknown Rx lisinopriL [Zestril TAB] 10 mg PO QDAY #30 tablet 02/01/17 02/25/20 Unknown Rx Tramadol HCl [Ultram] 50 mg PO Q8H PRN #10 tablet 08/27/18 02/25/20 Unknown Rx Clobetasol 0.05% 5 g BID 02/25/20 02/25/20 Unknown History Ezetimibe [Zetia] 10 mg PO QHS 02/25/20 02/25/20 Unknown History ED Physical Exam - General Limitations: No Limitations - Other Other exam information: GENERAL: The patient is well-developed well-nourished. HENT: Normocephalic. Atraumatic. Patient has moist mucous membranes. EYES: Extraocular motions are intact. Pupils equal reactive to light bilaterally. NECK: Supple. Trachea is midline. CHEST/LUNGS: Clear to auscultation. There is no respiratory distress noted. Unable to reproduce chest pain to palpation. HEART/CARDIOVASCULAR: Regular. There is no tachycardia. There is no murmur. ABDOMEN: Abdomen is soft, nontender. Patient has normal bowel sounds. Obese habitus. SKIN: Skin is warm and dry. NEURO: The patient is awake, alert, and oriented. The patient is cooperative. The patient has no focal neurologic deficits. Normal speech. MUSCULOSKELETAL: There is tenderness to palpation to the right shoulder, right wrist, and right hand. Radial pulse +2/4 and capillary refill less than 2 seconds to the affected right upper extremity. There is no limitation range of motion. ED Course Vital Signs 02/25/20 02/25/20 02/25/20 09:17 09:35 09:45 Temperature 98.0 F Pulse Rate 80 78 Respiratory 22 15 22 Rate Blood Pressure 175/94 150/129 Blood Pressure [Left] O2 Sat by Pulse 95 96 Oximetry 02/25/20 09:46 Temperature 97.5 F L Pulse Rate 73 Respiratory 21 Rate Blood Pressure Blood Pressure 150/129 [Left] O2 Sat by Pulse 97 Oximetry STACY score - Stacy Score Age > 65: (0) No Aspirin use within the Past 7 Days: (0) No 3 or more CAD Risk Factors: (1) Yes 2 or more Angina events in past 24 hrs: (1) Yes Known CAD with more than 50% Stenosis: (0) No Elevated Cardiac Markers: (1) Yes ST Deviation Greater than 0.5mm: (0) No STACY Score: 3 ED Medical Decision Making - Lab Data Result diagrams: 02/25/20 09:40 02/25/20 09:40 - EKG Data -: EKG Interpreted by Me EKG shows normal: sinus rhythm, axis, intervals, QRS complexes (Q waves to the inferior leads, LVH), ST-T waves (T wave inversions to the lateral leads) Rate: normal - EKG Data When compared to previous EKG there are: no significant change Interpretation: unchanged when compared t (08/26/18) - Radiology Data Radiology results: image reviewed interpreted by me: Chest x-ray does not show any acute process. There are no pleural effusions, obvious pneumonia and there is no pneumothorax. X-ray of the right shoulder and right hand do not show any fractures, dislocations, or any acute processes. - Medical Decision Making Regarding the patient's right arm, shoulder and hand pains, x-rays were completed of the shoulder and hand that did not show any fracture, dislocation, or any acute process. Capillary refill less than 2 seconds and radial pulse +2/4 to the affected right upper extremity. He has neurovascularly intact. Patient also presents with chest pain that started this morning. EKG shows some T wave inversions but otherwise there is no morphology consistent with ST elevation myocardial infarction. The first troponin came back slightly elevated at 0.04 and this will be trended. He is allergic to aspirin, so this was not given. Chest x-ray did not show any pneumonia, pleural effusions, pneumothorax, focal consolidation, or any other acute process. Low BNP level. D-dimer is negative. Patient has a moderate heart and STACY score. He will be admitted to the hospital for further evaluation and treatment and was accepted for admission by the hospitalist service. Critical Care Time: No Critical care attestation.: If time is entered above; I have spent that time in minutes in the direct care of this critically ill patient, excluding procedure time. ED Disposition Clinical Impression: Acute chest pain, Elevated troponin I level Hypertension Qualifiers: Hypertension type: essential hypertension Qualified Code(s): I10 - Essential (primary) hypertension Disposition: OP ADMIT IP TO THIS HOSP Is pt being admited?: Yes Instructions: Chest Pain (ED), Hypertension (ED) Referrals: PRIMARY CARE,MD [Primary Care Provider] - 3-5 Days
[2020-02-25 10:18] LABS: Hematocrit 49.7 % (35.5-45.6); Mean Corpuscular HGB Conc 34 % (32-34); Mean Corpuscular Volume 95 fl (84-94); Platelet Count 242 K/mm3 (140-440); Red Blood Count 5.24 M/mm3 (3.65-5.03); Red Cell Distribution Width 14.8 % (13.2-15.2)
--- NOTE | 2020-02-25 10:27 | XRay Report ---
CHEST 1 VIEW INDICATION: Chest Pain. COMPARISON: 08/27/2018 FINDINGS: SUPPORT DEVICES: None. HEART: Within normal limits. LUNGS/PLEURA: No acute air space or interstitial disease. ADDITIONAL FINDINGS: None. IMPRESSION: 1. No acute findings. Signer Name: Fareed Denis MD Signed: 02/25/2020 10:22 AM Workstation Name: [id number]
--- NOTE | 2020-02-25 10:29 | XRay Report ---
RIGHT HAND 3 VIEWS INDICATION / CLINICAL INFORMATION: right hand pain. COMPARISON: None available. FINDINGS: Only minimal degenerative change. No fracture or other significant abnormality Signer Name: Gerald Arthur MD Signed: 02/25/2020 10:25 AM Workstation Name: [id number]
[2020-02-25 10:30] LABS: BUN/Creatinine Ratio 18; Blood Urea Nitrogen 14 mg/dL (9-20); Calcium 9.4 mg/dL (8.4-10.2); Hemolysis Index 37
[2020-02-25 10:59] LABS: INR 0.95 (0.87-1.13)
[2020-02-25 11:00] LABS: Partial Thromboplastin Time 26.3 Sec. (24.2-36.6)
[2020-02-25 11:43] LABS: Chol/HDL Ratio 4.25 %; HDL Cholesterol 43 mg/dL (40-59); LDL Cholesterol,Direct 121 mg/dL (50-130)
[2020-02-25 12:08] LABS: Band Neutrophils # (Manual) 0.1 K/mm3; Giant Platelets Rare; Platelet Estimate Consistent w Auto; RBC Morphology Normal; Total Cells Counted 100
[2020-02-25] MEDS ORDERED: traMADol 50 MG TAB PO PRN (23:13)
[2020-02-25] MEDS ORDERED: ONDANSETRON 4 MG/2 ML INJ IV PRN (23:14)
[2020-02-25] MEDS ORDERED: HYDROmorphone 1 MG/1 ML INJ IV PRN (23:14)
[2020-02-25] MEDS ORDERED: oxyCODONE /ACETAMINOPHEN 5-325MG TAB PO PRN (23:14)
[2020-02-25] MEDS ORDERED: ACETAMINOPHEN 325 MG TAB PO PRN (23:14)
--- NOTE | 2020-02-25 23:18 | History and Physical Report ---
History of Present Illness Date of examination: 02/25/20 Date of admission: 02/25/20 17:00 Chief complaint: Chest pain since a.m. Right shoulder pain for 4 days History of present illness: 59-year-old male with history of hypertension, coronary artery disease, hyper lipidemia on Zetia comes in for left-sided chest pain since this morning. Chest pain is about 7 on a scale of 1-10. Patient also has mild CHF. Patient has full code of cardiac stents in the past. Chest pain is intermittent in nature 7 on a scale of 1-10 no diaphoresis. No shortness of breath. No palpitations. No radiation. Incidentally patient also has a right hand and shoulder pain since 4 days after a fall from 4 feet height. Patient apparently ate his head but no loss of consciousness. Patient endorses soreness in the right shoulder and right hand. Pain worsens with any movement. 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 Naranjo Heart Score - HEART Score History: Moderately suspicious EKG: Non-specific Age: 45-65 Risk factors: > 3 risk factors or hx of atherosclerotic disease Troponin: 1-3x normal limit HEART Score: 6 - Critical Actions Critical Actions: 4-6 pts:12-16.6% risk of adverse cardiac event. Should be admitted - Past Medical History Previous Medical History?: Yes Hx Hypertension: Yes Hx Heart Attack/AMI: Yes Hx Congestive Heart Failure: Yes Hx Renal Disease: Yes (patient states one of his kidneys was not working but has resolved now) Hx Arthritis: Yes Hx Kidney Stones: Yes (2016) Additional medical history: CAD, ECZEMA, Chronic Back pain. HIGH CHOLESTEROL - Surgical History Past Surgical History?: Yes Coronary Stent: Yes (x2) Cholecystectomy: Yes (2007) Additional Surgical History: gallbldder 2008, Left knee. - Social History Smoking Status: Current Every Day Smoker Substance Use Type: None Review of Systems ROS: Stated complaint: FELL OFF RAMP/CP Other details as noted in HPI Comment: All other systems reviewed and negative Constitutional: denies: chills, fever Eyes: denies: eye pain, vision change ENT: denies: ear pain, throat pain Respiratory: shortness of breath. denies: cough Cardiovascular: chest pain, edema. denies: palpitations Gastrointestinal: denies: abdominal pain, vomiting Genitourinary: denies: dysuria, discharge Musculoskeletal: arthralgia. denies: joint swelling Skin: denies: rash, lesions Neurological: denies: headache, weakness Medications and Allergies Allergies Allergy/AdvReac Type Severity Reaction Status Date / Time acetaminophen [From Tylenol] Allergy Intermediate Rash Verified 04/10/15 08:17 aspirin Allergy Swelling Verified 04/10/15 08:17 Penicillins Allergy Rash Verified 04/10/15 08:17 citrus Allergy Rash Uncoded 08/27/18 11:32 tomato Allergy Rash Uncoded 08/27/18 11:33 Home Medications Medication Instructions Recorded Confirmed Last Taken Type Clopidogrel [Plavix] 75 mg PO QDAY #30 tablet 02/01/17 02/25/20 Unknown Rx Metoprolol [Lopressor TAB] 25 mg PO BID #60 tablet 02/01/17 02/25/20 Unknown Rx lisinopriL [Zestril TAB] 10 mg PO QDAY #30 tablet 02/01/17 02/25/20 Unknown Rx Tramadol HCl [Ultram] 50 mg PO Q8H PRN #10 tablet 08/27/18 02/25/20 Unknown Rx Clobetasol 0.05% 5 g BID 02/25/20 02/25/20 Unknown History Ezetimibe [Zetia] 10 mg PO QHS 02/25/20 02/25/20 Unknown History Exam - Constitutional Vitals: Temp Pulse Resp BP Pulse Ox 98.2 F 68 16 153/78 91 02/25/20 19:21 02/25/20 19:21 02/25/20 19:21 02/25/20 19:21 02/25/20 19:21 General appearance: Present: no acute distress, well-nourished - EENT Eyes: Present: PERRL ENT: hearing intact, clear oral mucosa - Neck Neck: Present: supple, normal ROM - Respiratory Respiratory effort: normal Respiratory: bilateral: CTA - Cardiovascular Heart rate: 78 Rhythm: regular Heart Sounds: Present: S1 & S2. Absent: rub, click - Extremities Extremities: no ischemia, pulses intact, pulses symmetrical, No edema Peripheral Pulses: within normal limits - Abdominal General gastrointestinal: Present: soft, non-tender, non-distended, normal bowel sounds Male genitourinary: Present: normal - Rectal Rectal Exam: deferred - Integumentary Integumentary: Present: clear, warm, dry - Musculoskeletal Musculoskeletal: gait normal, strength equal bilaterally - Psychiatric Psychiatric: appropriate mood/affect, intact judgment & insight - Neurologic Neurologic: CNII-XII intact, moves all extremities - Allied Health Allied health notes reviewed: nursing, case management HEART Score - HEART Score EKG: Non-specific Age: 45-65 Risk factors: > 3 risk factors or hx of atherosclerotic disease Troponin: Troponin T 0.029 ng/mL (0.00-0.029) 02/25/20 15:15 Troponin: 1-3x normal limit - Critical Actions Critical Actions: 4-6 pts:12-16.6% risk of adverse cardiac event. Should be admitted Results - Labs CBC & Chem 7: 02/26/20 04:34 02/26/20 04:34 Labs: Laboratory Last Values WBC 9.9 K/mm3 (4.5-11.0) 02/25/20 09:40 RBC 5.24 M/mm3 (3.65-5.03) H 02/25/20 09:40 Hgb 17.0 gm/dl (11.8-15.2) H 02/25/20 09:40 Hct 49.7 % (35.5-45.6) H 02/25/20 09:40 MCV 95 fl (84-94) H 02/25/20 09:40 MCH 32 pg (28-32) 02/25/20 09:40 MCHC 34 % (32-34) 02/25/20 09:40 RDW 14.8 % (13.2-15.2) 02/25/20 09:40 Plt Count 242 K/mm3 (140-440) 02/25/20 09:40 Lymph # (Auto) Public Health Educator 02/25/20 09:40 Add Manual Diff Complete 02/25/20 09:40 Total Counted 100 02/25/20 09:40 Seg Neutrophils % Public Health Educator 02/25/20 09:40 Seg Neuts % (Manual) 38.0 % (40.0-70.0) L 02/25/20 09:40 Band Neutrophils % 1.0 % 02/25/20 09:40 Lymphocytes % (Manual) 53.0 % (13.4-35.0) H 02/25/20 09:40 Reactive Lymphs % (Man) 0 % 02/25/20 09:40 Monocytes % (Manual) 5.0 % (0.0-7.3) 02/25/20 09:40 Eosinophils % (Manual) 2.0 % (0.0-4.3) 02/25/20 09:40 Basophils % (Manual) 1.0 % (0.0-1.8) 02/25/20 09:40 Metamyelocytes % 0 % 02/25/20 09:40 Myelocytes % 0 % 02/25/20 09:40 Promyelocytes % 0 % 02/25/20 09:40 Blast Cells % 0 % 02/25/20 09:40 Nucleated RBC % Not Reportable 02/25/20 09:40 Seg Neutrophils # Man 3.8 K/mm3 (1.8-7.7) 02/25/20 09:40 Band Neutrophils # 0.1 K/mm3 02/25/20 09:40 Lymphocytes # (Manual) 5.2 K/mm3 (1.2-5.4) 02/25/20 09:40 Abs React Lymphs (Man) 0.0 K/mm3 02/25/20 09:40 Monocytes # (Manual) 0.5 K/mm3 (0.0-0.8) 02/25/20 09:40 Eosinophils # (Manual) 0.2 K/mm3 (0.0-0.4) 02/25/20 09:40 Basophils # (Manual) 0.1 K/mm3 (0.0-0.1) 02/25/20 09:40 Metamyelocytes # 0.0 K/mm3 02/25/20 09:40 Myelocytes # 0.0 K/mm3 02/25/20 09:40 Promyelocytes # 0.0 K/mm3 02/25/20 09:40 Blast Cells # 0.0 K/mm3 02/25/20 09:40 WBC Morphology Not Reportable 02/25/20 09:40 Hypersegmented Neuts Not Reportable 02/25/20 09:40 Hyposegmented Neuts Not Reportable 02/25/20 09:40 Hypogranular Neuts Not Reportable 02/25/20 09:40 Smudge Cells Not Reportable 02/25/20 09:40 Toxic Granulation Not Reportable 02/25/20 09:40 Toxic Vacuolation Not Reportable 02/25/20 09:40 Dohle Bodies Not Reportable 02/25/20 09:40 Pelger-Huet Anomaly Not Reportable 02/25/20 09:40 Janet Rods Not Reportable 02/25/20 09:40 Platelet Estimate Consistent w auto 02/25/20 09:40 Clumped Platelets Not Reportable 02/25/20 09:40 Plt Clumps, EDTA Not Reportable 02/25/20 09:40 Large Platelets Not Reportable 02/25/20 09:40 Giant Platelets Rare 02/25/20 09:40 Platelet Satelliting Not Reportable 02/25/20 09:40 Plt Morphology Comment Not Reportable 02/25/20 09:40 RBC Morphology Normal 02/25/20 09:40 Dimorphic RBCs Not Reportable 02/25/20 09:40 Polychromasia Not Reportable 02/25/20 09:40 Hypochromasia Not Reportable 02/25/20 09:40 Poikilocytosis Not Reportable 02/25/20 09:40 Anisocytosis Not Reportable 02/25/20 09:40 Microcytosis Not Reportable 02/25/20 09:40 Macrocytosis Not Reportable 02/25/20 09:40 Spherocytes Not Reportable 02/25/20 09:40 Pappenheimer Bodies Not Reportable 02/25/20 09:40 Sickle Cells Not Reportable 02/25/20 09:40 Target Cells Not Reportable 02/25/20 09:40 Tear Drop Cells Not Reportable 02/25/20 09:40 Ovalocytes Not Reportable 02/25/20 09:40 Helmet Cells Not Reportable 02/25/20 09:40 [place] Bodies Not Reportable 02/25/20 09:40 [place] Rings Not Reportable 02/25/20 09:40 Simpson Cells Not Reportable 02/25/20 09:40 Bite Cells Not Reportable 02/25/20 09:40 Crenated Cell Not Reportable 02/25/20 09:40 Elliptocytes Not Reportable 02/25/20 09:40 Acanthocytes (Spur) Not Reportable 02/25/20 09:40 Rouleaux Not Reportable 02/25/20 09:40 Hemoglobin C Crystals Not Reportable 02/25/20 09:40 Schistocytes Not Reportable 02/25/20 09:40 Malaria parasites Not Reportable 02/25/20 09:40 Caleb Bodies Not Reportable 02/25/20 09:40 Hem Pathologist Commnt No 02/25/20 09:40 PT 12.8 Sec. (12.2-14.9) 02/25/20 09:40 INR 0.95 (0.87-1.13) 02/25/20 09:40 APTT 26.3 Sec. (24.2-36.6) 02/25/20 09:40 D-Dimer 151.47 ng/mlDDU (0-234) 02/25/20 09:40 Sodium 138 mmol/L (137-145) 02/25/20 09:40 Potassium 4.0 mmol/L (3.6-5.0) 02/25/20 09:40 Chloride 103.4 mmol/L (98-107) 02/25/20 09:40 Carbon Dioxide 25 mmol/L (22-30) 02/25/20 09:40 Anion Gap 14 mmol/L 02/25/20 09:40 BUN 14 mg/dL (9-20) 02/25/20 09:40 Creatinine 0.8 mg/dL (0.8-1.3) 02/25/20 09:40 Estimated GFR > 60 ml/min 02/25/20 09:40 BUN/Creatinine Ratio 18 % 02/25/20 09:40 Glucose 100 mg/dL (75-100) 02/25/20 09:40 Calcium 9.4 mg/dL (8.4-10.2) 02/25/20 09:40 Troponin T 0.029 ng/mL (0.00-0.029) 02/25/20 15:15 NT-Pro-B Natriuret Pep 78.70 pg/mL (0-900) 02/25/20 09:40 Triglycerides 112 mg/dL (2-149) 02/25/20 09:40 Cholesterol 183 mg/dL (50-199) 02/25/20 09:40 LDL Cholesterol Direct 121 mg/dL (50-130) 02/25/20 09:40 HDL Cholesterol 43 mg/dL (40-59) 02/25/20 09:40 Cholesterol/HDL Ratio 4.25 % 02/25/20 09:40 Short CBC 02/25/20 Range/Units 09:40 WBC 9.9 (4.5-11.0) K/mm3 Hgb 17.0 H (11.8-15.2) gm/dl Hct 49.7 H (35.5-45.6) % Plt Count 242 (140-440) K/mm3 BMP 02/25/20 09:40 Sodium 138 Potassium 4.0 Chloride 103.4 Carbon Dioxide 25 BUN 14 Creatinine 0.8 Glucose 100 Calcium 9.4 Cardiac Enzymes 02/25/20 02/25/20 02/25/20 Range/Units 09:40 13:51 15:15 Troponin T 0.040 H 0.037 H 0.029 (0.00-0.029) ng/mL Short CBC 02/25/20 02/26/20 Range/Units 09:40 04:34 WBC 9.9 9.4 (4.5-11.0) K/mm3 Hgb 17.0 H 16.4 H (11.8-15.2) gm/dl Hct 49.7 H 48.4 H (35.5-45.6) % Plt Count 242 223 (140-440) K/mm3 [facility] 02/25/20 02/26/20 09:40 04:34 Sodium 138 139 Potassium 4.0 4.5 Chloride 103.4 104.2 Carbon Dioxide 25 25 BUN 14 15 Creatinine 0.8 0.8 Glucose 100 103 H Calcium 9.4 9.2 Cardiac Enzymes 02/25/20 02/25/20 02/25/20 Range/Units 00:00 09:40 13:51 Troponin T 0.039 H 0.040 H 0.037 H (0.00-0.029) ng/mL 02/25/20 02/26/20 Range/Units 15:15 04:34 Troponin T 0.029 0.041 H D (0.00-0.029) ng/mL Liver Function 02/26/20 Range/Units 04:34 Total Bilirubin 0.40 (0.1-1.2) mg/dL AST 35 (5-40) units/L ALT 37 (7-56) units/L Alkaline Phosphatase 75 (35-129) units/L Albumin 3.4 L (3.9-5) g/dL - Imaging and Cardiology EKG: report reviewed (Normal sinus rhythm no acute ST-T wave changes) Kathleen/IV: Voiding Method Toilet Assessment and Plan Advance Directives: Yes - Patient Problems (1) NSTEMI (non-ST elevated myocardial infarction) Current Visit: Yes Status: Acute Plan to address problem: Patient's troponins are elevated Clinical picture consistent with NSTEMI Patient started on heparin drip Cardiology consult requested possible cath/Lexiscan in the a.m. (2) Acute chest pain Current Visit: Yes Status: Acute (3) Hyperlipemia Current Visit: No Status: Chronic Qualifiers: Hyperlipidemia type: mixed hyperlipidemia Qualified Code(s): E78.2 - Mixed hyperlipidemia Plan to address problem: Continue Zetia (4) Hypertension Current Visit: Yes Status: Chronic Qualifiers: Hypertension type: essential hypertension Qualified Code(s): I10 - Essential (primary) hypertension Plan to address problem: Continue blood pressure medications and adjust medications as necessary IV hydralazine. 10 mg every 3 as needed (5) CAD (coronary artery disease) Current Visit: No Status: Chronic Qualifiers: Coronary Disease-Associated Artery/Lesion type: [place] artery [place] vs. transplanted heart: [place] heart Associated angina: angina presence unspecified Qualified Code(s): I25.10 - Atherosclerotic heart disease of [place] coronary artery without angina pectoris Plan to address problem: continue Plavix aspirin. Patient also on heparin drip. (6) DVT prophylaxis Current Visit: Yes Status: Acute Plan to address problem: Patient on heparin drip and GI prophylaxis
[2020-02-25] MEDS: METOPROLOL TARTRATE 25 MG TAB PO SCH (23:33)
[2020-02-25] MEDS: FAMOTIDINE 20 MG/2 ML INJ IV SCH (23:34)
[2020-02-26 05:30] LABS: Basophils # (Auto) 0.1 K/mm3 (0.0-0.1); Basophils % (Auto) 0.8 % (0.0-1.8); Eosinophils # (Auto) 0.6 K/mm3 (0.0-0.4); Hematocrit 48.4 % (35.5-45.6); Hemoglobin 16.4 gm/dl (11.8-15.2); Lymphocytes # (Auto) 4.4 K/mm3 (1.2-5.4); Mean Corpuscular HGB Conc 34 % (32-34); Mean Corpuscular Volume 95 fl (84-94); Monocytes # (Auto) 0.8 K/mm3 (0.0-0.8); Monocytes % (Auto) 8.9 % (0.0-7.3); Platelet Count 223 K/mm3 (140-440); Red Blood Count 5.09 M/mm3 (3.65-5.03); Red Cell Distribution Width 14.5 % (13.2-15.2)
[2020-02-26 05:48] LABS: Alanine Aminotransferase 37 units/L (7-56); Albumin 3.4 g/dL (3.9-5); BUN/Creatinine Ratio 19; Blood Urea Nitrogen 15 mg/dL (9-20); Calcium 9.2 mg/dL (8.4-10.2); Hemolysis Index 21
[2020-02-26] MEDS ORDERED: HEPARIN/ 0.45% NACL DRIP 25,000 UNIT/500 ML BAG IV SCH ×2 (08:00)
[2020-02-26 08:02] VITALS: BP 172/84
[2020-02-26] MEDS ORDERED: HEPARIN 10,000 UNITS/10 ML VIAL IV ONE (09:00)
[2020-02-26] MEDS: METOPROLOL TARTRATE 25 MG TAB PO SCH (09:18)
[2020-02-26] MEDS: FAMOTIDINE 20 MG/2 ML INJ IV SCH (09:19)
[2020-02-26] MEDS ORDERED: CLOPIDOGREL 75 MG TAB PO SCH (10:00)
[2020-02-26] MEDS ORDERED: LISINOPRIL 10 MG TAB PO SCH ×2 (10:00→12:30)
[2020-02-26] MEDS ORDERED: SODIUM CHLORIDE 0.9% 500 ML 500 ML ONE (10:09)
--- NOTE | 2020-02-26 10:11 | XRay Report ---
RIGHT SHOULDER 3 VIEWS INDICATION / CLINICAL INFORMATION: right shoulder pain COMPARISON: None available. FINDINGS: BONES and JOINT(S): No acute fracture or subluxation. No significant arthritis. SOFT TISSUES: No significant abnormality. ADDITIONAL FINDINGS: None. IMPRESSION: 1. No acute findings. Signer Name: Jaime Velasquez MD Signed: 02/26/2020 10:07 AM Workstation Name: [id number]
--- NOTE | 2020-02-26 10:13 | Consultation ---
History of Present Illness Consult date: 02/26/20 Requesting physician: MICHAEL TOMPKINS Consult reason: chest pain History of present illness: The pt is a 59 YO male with a past medical history significant for CAD, s/p PCI, HTN, HLP, tobacco use, known ASA allergy (reportedly causes skin rash). He is followed in our office by Dr. Naranjo. He presented with c/o pain to the right hand and shoulder that has been going on for the past 4 days, Saturday, since the patient fell off a ramp from about 4 feet up. He fell onto that right side but denies hitting his head or any loss of consciousness. Patient states that the areas were initially just sore but the pain has been increasing and is currently a 10 out of 10 in intensity. The pain worsens with any movement but he does admit to full range of motion. Secondly, the patient has developed some chest pain, "across my chest", that started earlier yesterday morning. It is associated with some mild shortness of breath. No known aggravating or alleviating factors for the chest pain. He denies any palpitations, n/v, d iaphoresis, dizziness or syncope. tte done 08/2018 showed EF 45-50%, mild LVH, impaired relaxation. LHC done 08/2018 with PCI of mid LAD with ANGELA and POBA of OM1. LHC done 10/09/2013 with s/p PCI of mid LAD with ANGELA,right radial,50% mid circ,ectatic RCA, EF 40-45% LHC done 04/03/2016 with mid crc ANGELA 3.5 x 12 Xience Alpine stent with patent mid LAD stent and 40-50% proximal LAD lesion and mild to moderate RCA disease.EF 50% Past History Past Medical History: other (as per HPI) Medications and Allergies Allergies Allergy/AdvReac Type Severity Reaction Status Date / Time acetaminophen [From Tylenol] Allergy Intermediate Rash Verified 04/10/15 08:17 aspirin Allergy Swelling Verified 04/10/15 08:17 Penicillins Allergy Rash Verified 04/10/15 08:17 citrus Allergy Rash Uncoded 08/27/18 11:32 tomato Allergy Rash Uncoded 08/27/18 11:33 Home Medications Medication Instructions Recorded Confirmed Last Taken Type RX: Clopidogrel [Plavix] 75 mg PO QDAY #30 tablet 02/01/17 02/25/20 Unknown Rx RX: Metoprolol [Lopressor TAB] 25 mg PO BID #60 tablet 02/01/17 02/25/20 Unknown Rx RX: lisinopriL [Zestril TAB] 10 mg PO QDAY #30 tablet 02/01/17 02/25/20 Unknown Rx RX: Tramadol HCl [Ultram] 50 mg PO Q8H PRN #10 tablet 08/27/18 02/25/20 Unknown Rx Clobetasol 0.05% 5 g BID 02/25/20 02/25/20 Unknown History RX: Ezetimibe [Zetia] 10 mg PO QHS 02/25/20 02/25/20 Unknown History Active Meds: Active Medications Clopidogrel Bisulfate (Plavix) 75 mg PO QDAY [facility] Last Admin: 02/26/20 09:19 Dose: Not Given Documented by: Ezetimibe (Zetia) 10 mg PO QHS [facility] Famotidine (Pepcid) 20 mg IV BID [facility] Last Admin: 02/26/20 09:19 Dose: Not Given Documented by: Hydromorphone HCl (Dilaudid) 0.5 mg IV Q3H PRN PRN Reason: Pain , Severe (7-10) Heparin Sodium/Sodium Chloride (Heparin/ 0.45% Nacl-25,000 Unit/500 Ml) 25,000 unit in 500 mls @ 20 mls/hr IV TITRATE [facility]; Protocol Lisinopril (Zestril) 10 mg PO QDAY [facility] Last Admin: 02/26/20 09:19 Dose: Not Given Documented by: Metoprolol Tartrate (Metoprolol) 25 mg PO BID [facility] Last Admin: 02/26/20 09:18 Dose: Not Given Documented by: Ondansetron HCl (Zofran) 4 mg IV Q8H PRN PRN Reason: Nausea And Vomiting Sodium Chloride (Sodium Chloride Flush Syringe 10 Ml) 10 ml IV BID [facility] Last Admin: 02/26/20 09:19 Dose: Not Given Documented by: Sodium Chloride (Sodium Chloride Flush Syringe 10 Ml) 10 ml IV PRN PRN PRN Reason: LINE FLUSH Tramadol HCl (Ultram) 50 mg PO Q8H PRN PRN Reason: Pain , Severe (7-10) Review of Systems Constitutional: no weight loss, no weight gain, no fever, no chills, no sweats Ears, nose, mouth and throat: no ear pain, no nose pain, no sinus pressure, no sinus pain Cardiovascular: chest pain, shortness of breath, no orthopnea, no palpitations, no rapid/irregular heart beat, no edema, no syncope, no lightheadedness, no leg edema Respiratory: shortness of breath, no cough, no congestion, no wheezing, no pain on inspiration Gastrointestinal: no abdominal pain, no nausea, no diarrhea, no constipation, no change in bowel habits Musculoskeletal: other (right arm pain), no neck stiffness, no neck pain Integumentary: no rash, no pruritis, no redness, no sores, no wounds Neurological: no head injury, no paralysis, no weakness, no parathesias, no numbness, no tingling, no seizures, no syncope Psychiatric: no anxiety Endocrine: no cold intolerance, no heat intolerance Hematologic/Lymphatic: no easy bruising, no easy bleeding Allergic/Immunologic: no urticaria Physical Examination Vital Signs Temp Pulse Resp BP Pulse Ox 98.0 F 80 22 175/94 95 02/25/20 09:17 02/25/20 09:17 02/25/20 09:17 02/25/20 09:17 02/25/20 09:17 General appearance: no acute distress HEENT: Positive: PERRL, Normocephaly, Mucus Membranes Moist Neck: Positive: neck supple, trachea midline Cardiac: Positive: Reg Rate and Rhythm, S1/S2 Lungs: Positive: Decreased Breath Sounds Neuro: Positive: Grossly Intact Abdomen: Negative: Tender Skin: Negative: Rash Musculoskeletal: other (right arm pain) Extremities: Absent: edema Results 02/26/20 04:34 02/26/20 04:34 Cardiac Enzymes 02/26/20 Range/Units 04:34 AST 35 (5-40) units/L Coagulation 02/25/20 Range/Units 09:40 PT 12.8 (12.2-14.9) Sec. INR 0.95 (0.87-1.13) APTT 26.3 (24.2-36.6) Sec. Lipids 02/25/20 Range/Units 09:40 Triglycerides 112 (2-149) mg/dL Cholesterol 183 (50-199) mg/dL HDL Cholesterol 43 (40-59) mg/dL Cholesterol/HDL Ratio 4.25 % CBC 02/25/20 02/26/20 Range/Units 09:40 04:34 WBC 9.9 9.4 (4.5-11.0) K/mm3 RBC 5.24 H 5.09 H (3.65-5.03) M/mm3 Hgb 17.0 H 16.4 H (11.8-15.2) gm/dl Hct 49.7 H 48.4 H (35.5-45.6) % Plt Count 242 223 (140-440) K/mm3 Lymph # (Auto) Certified Detention Deputy 4.4 Grand # (Auto) 0.8 (0.0-0.8) K/mm3 Eos # (Auto) 0.6 H (0.0-0.4) K/mm3 Baso # (Auto) 0.1 (0.0-0.1) K/mm3 Comprehensive Metabolic Panel 02/25/20 02/26/20 Range/Units 09:40 04:34 Sodium 138 139 (137-145) mmol/L Potassium 4.0 4.5 (3.6-5.0) mmol/L Chloride 103.4 104.2 (98-107) mmol/L Carbon Dioxide 25 25 (22-30) mmol/L BUN 14 15 (9-20) mg/dL Creatinine 0.8 0.8 (0.8-1.3) mg/dL Glucose 100 103 H (75-100) mg/dL Calcium 9.4 9.2 (8.4-10.2) mg/dL AST 35 (5-40) units/L ALT 37 (7-56) units/L Alkaline Phosphatase 75 (35-129) units/L Total Protein 7.0 (6.3-8.2) g/dL Albumin 3.4 L (3.9-5) g/dL - Imaging and Cardiology Echo: report reviewed (08/2018 showed EF 45-50%, mild LVH, impaired relaxation. ) Cardiac cath: report reviewed ([facility] done 08/2018 with PCI of mid LAD with ANGELA and POBA of OM1.LHC done 10/09/2013 with s/p PCI of mid LAD with ANGELA,right radial,50% mid circ,ectatic RCA, EF 40-45%) EKG: report reviewed, image reviewed EKG interpretations - Telemetry EKG Rhythm: Sinus Rhythm - EKG Sinus rhythms and dysrhythmias: sinus rhythm Assessment and Plan Coronary angiography recommended in setting of chest pain, elevated [place] and risk factors. Indications, potential risks and benefits of LHC reviewed with pt and he is agreeable to proceed with LHC today. Await findings. The patient has been seen in conjunction with Dr. Bullard who agrees with the assessment and plan of care. - Patient Problems (1) Chest pain Current Visit: Yes Status: Acute (2) NSTEMI (non-ST elevated myocardial infarction) Current Visit: Yes Status: Acute (3) Right arm pain Current Visit: Yes Status: Acute (4) CAD (coronary artery disease) Current Visit: Yes Status: Chronic Qualifiers: Coronary Disease-Associated Artery/Lesion type: [place] artery [place] vs. transplanted heart: [place] heart Associated angina: angina presence unspecified Qualified Code(s): I25.10 - Atherosclerotic heart disease of [place] coronary artery without angina pectoris (5) Stented coronary artery Current Visit: Yes Status: Chronic (6) Hypertension Current Visit: Yes Status: Chronic Qualifiers: Hypertension type: essential hypertension Qualified Code(s): I10 - Essential (primary) hypertension (7) Hyperlipemia Current Visit: Yes Status: Chronic Qualifiers: Hyperlipidemia type: mixed hyperlipidemia Qualified Code(s): E78.2 - Mixed hyperlipidemia (8) Tobacco abuse Current Visit: Yes Status: Chronic (9) Aspirin allergy Current Visit: Yes Status: Chronic
[2020-02-26] MEDS ORDERED: NITROGLYCERIN SYRINGE 3 ML ONE (10:22)
[2020-02-26] MEDS ORDERED: HEPARIN 10,000 UNITS/10 ML VIAL ONE (10:22)
[2020-02-26] MEDS ORDERED: HEPARIN/NS 5000 UNIT/500ML 1,000 ML IR ONE (10:22)
[2020-02-26] MEDS ORDERED: VERAPAMIL 5 MG/2 ML INJ ONE (10:22)
[2020-02-26] MEDS: MIDAZOLAM 2 MG/2 ML INJ ONE ×2 (10:51→11:23)
[2020-02-26] MEDS: fentaNYL 100 MCG/2 ML INJ ONE ×2 (10:51→11:23)
[2020-02-26] MEDS: LIDOCAINE (2%) 20 MG/1 ML VIAL 20 ML MDV INFILTRATI ONE ×2 (11:26→11:28)
[2020-02-26] MEDS ORDERED: hydrALAZINE 20 MG/1 ML INJ ONE (11:32)
[2020-02-26] MEDS ORDERED: NITROGLYCERIN 0.4 MG TAB SUBL SL ONE (11:36)
[2020-02-26] MEDS ORDERED: traMADol 50 MG TAB PO PRN (12:06)
--- NOTE | 2020-02-26 12:35 | Cardiac Catherization Report ---
LEFT HEART CATHETERIZATION CLINICAL INFORMATION: This is a 59-year-old -[place] gentleman with morbid obesity, known coronary artery disease, PCI of the LAD, circ, nonobstructive disease, presents with chest pain with elevated cardiac enzymes suggestive of non-ST type 1. No change in EKG. Procedure was done with moderate sedation started on 1122 and finished at 1136, 14 minutes of moderate sedation. Procedure was performed via the right femoral artery, sterile technique, local anesthesia, 5-Portuguese groin sheath inserted. Left system engaged with JL3.5 catheter. Left main is large and patent, bifurcates into large LAD, proximal patent, mild luminal irregularities and there is a focal 40% lesion. Diagonal 1 is patent. After diagonal 1, mid stent is widely patent, distal at the apex. There is diffuse disease around 60%. Circumflex mid stent patent and bifurcates into OM1 that is medium in caliber with mild diffuse disease. Upper and lower branch, patent. RCA engaged with JR4, is a large dominant vessel, proximal to mid diffuse 40-50% and distally right before the bifurcation there is a 60-70% lesion and PDA, PLV are small caliber vessels. LV gram done in NIGERIEN view shows normal LV function, elevated left end-diastolic pressure of 36 mmHg, LV is 182, aortic is 184/95. No gradient across the aortic valve on pullback. 5-Portuguese catheters all taken over guidewire, 5-Portuguese groin sheath was discontinued. Manual pressure held. No hematoma, no bleeding. SUMMARY: Left main patent, LAD proximal 40%, mid stent patent. Distal apical 60%, circumflex mid stent patent, OM1 patent, mild diffuse disease. RCA proximal patent, mid 40%, distal 60-70%, but small PDA, PLV that are patent. Normal LV function. Medical management. JOB# [id number] ROB/CESIA
[2020-02-26 12:55] LABS: Hematocrit 50.4 % (35.5-45.6); Hemoglobin 16.9 gm/dl (11.8-15.2)
[2020-02-26 13:06] LABS: INR 1.02 (0.87-1.13); Partial Thromboplastin Time 24.8 Sec. (24.2-36.6)
--- NOTE | 2020-02-26 16:01 | Discharge Summary ---
Providers - Providers Date of Admission: 02/25/20 17:00 Date of discharge: 02/26/20 Attending physician: ERNA LUGO 02/25/20 12:11 Consult to Cardiology [CONS] Routine Consulting Provider: RIMMA BILLY Reason For Exam: chest pain, elevated trop 02/25/20 23:14 Consult to Physician [CONS] Routine Comment: Consulting Provider: RIMMA BILLY Physician Instructions: Reason For Exam: Chest pain 02/26/20 11:48 Consult to Cardiac Rehabilitation [CONS] Routine Reason For Exam: Cardiac Rehab Evaluation Primary care physician: [employer] Hospitalization Condition: Stable Hospital course: 59-year-old male with history of hypertension, coronary artery disease, hyperlipidemia on Zetia comes in for left-sided chest pain since this morning. Chest pain is about 7 on a scale of 1-10. Patient also has mild CHF. Patient has full code of cardiac stents in the past. Chest pain is intermittent in nature 7 on a scale of 1-10 no diaphoresis. No shortness of breath. No palpitations. No radiation. Incidentally patient also has a right hand and shoulder pain since 4 days after a fall from 4 feet height. Patient apparently ate his head but no loss of consciousness. Patient endorses soreness in the right shoulder and right hand. Pain worsens with any movement. His gauge controller is Dr. Billy : Patient had cath this morning Cath showed small vessel disease and patent LAD and left circumflex stent distal RCA disease no change from 08/23/2018. Cardiology asked me to add Imdur and increase her lisinopril. While trying to do the prescriptions patient walked out and went home without signing AMA papers or informing us. Patient was counseled about cardiac cath and medications to be used and patient also had right shoulder and arm contusion injury which is addressed. (1) NSTEMI (non-ST elevated myocardial infarction) Current Visit: Yes Status: Acute Plan to address problem: Patient's troponins are elevated Clinical picture consistent with NSTEMI Patient started on heparin drip Cardiology consult requested possible cath/Lexiscan in the a.m. "tte done 08/2018 showed EF 45-50%, mild LVH, impaired relaxation. LHC done 08/2018 with PCI of mid LAD with ANGELA and POBA of OM1. LHC done 10/09/2013 with s/p PCI of mid LAD with ANGELA,right radial,50% mid circ,ectatic RCA, EF 40-45% LHC done 04/03/2016 with mid crc ANGELA 3.5 x 12 Xience Alpine stent with patent mid LAD stent and 40-50% proximal LAD lesion and mild to moderate RCA disease.EF 50% rec: cardiac cath small vessel disease and patent lad and lcx stent distal rca disease no change from , add imdur and increase lisinopril and discharge in am if bp stable and ambulate without chest pain , no asa secondary to allergy " (2) Acute chest pain Current Visit: Yes Status: Acute (3) Hyperlipemia Current Visit: No Status: Chronic Qualifiers: Hyperlipidemia type: mixed hyperlipidemia Qualified Code(s): E78.2 - Mixed hyperlipidemia Plan to address problem: Continue Zetia (4) Hypertension Current Visit: Yes Status: Chronic Qualifiers: Hypertension type: essential hypertension Qualified Code(s): I10 - Essential (primary) hypertension Plan to address problem: Continue blood pressure medications and adjust medications as necessary IV hydralazine. 10 mg every 3 as needed (5) CAD (coronary artery disease) Current Visit: No Status: Chronic Qualifiers: Coronary Disease-Associated Artery/Lesion type: [place] artery [place] vs. transplanted heart: [place] heart Associated angina: angina presence unspecified Qualified Code(s): I25.10 - Atherosclerotic heart disease of [place] coronary artery without angina pectoris Plan to address problem: continue Plavix aspirin. Patient also on heparin drip. (6) right wrist sprain Patient was given splint for the right wrist and was told that the recovery time is 4 to 6 weeks for the right wrist) sprain. Patient able to move his right upper extremity full range. Painful range of motion. Patient wanted tramadol prescription and before I could write the tramadol prescription patient walked out without doing informing the nurse on me. Disposition: [id number] LEFT AGAINST MED ADVICE - Discharge Diagnoses (1) NSTEMI (non-ST elevated myocardial infarction) Status: Acute (2) Acute chest pain Status: Acute (3) Hyperlipemia Status: Chronic Qualifiers: Hyperlipidemia type: mixed hyperlipidemia Qualified Code(s): E78.2 - Mixed hyperlipidemia (4) Hypertension Status: Chronic Qualifiers: Hypertension type: essential hypertension Qualified Code(s): I10 - Essential (primary) hypertension (5) CAD (coronary artery disease) Status: Chronic Qualifiers: Coronary Disease-Associated Artery/Lesion type: [place] artery [place] vs. transplanted heart: [place] heart Associated angina: angina presence unspecified Qualified Code(s): I25.10 - Atherosclerotic heart disease of [place] coronary artery without angina pectoris (6) DVT prophylaxis Status: Acute Core Measure Documentation - Palliative Care Palliative Care/ Comfort Measures: Not Applicable - Core Measures Any of the following diagnoses?: none Exam - Constitutional Vitals: Temp Pulse Resp BP Pulse Ox 97.9 F 76 18 172/84 92 02/26/20 07:47 02/26/20 07:47 02/26/20 07:47 02/26/20 07:47 02/26/20 07:47 General appearance: Present: no acute distress, well-nourished - EENT Eyes: Present: PERRL ENT: hearing intact, clear oral mucosa - Neck Neck: Present: supple, normal ROM - Respiratory Respiratory effort: normal Respiratory: bilateral: CTA - Cardiovascular Heart Sounds: Present: S1 & S2. Absent: rub, click - Extremities Extremities: pulses symmetrical, No edema Peripheral Pulses: within normal limits - Abdominal General gastrointestinal: Present: soft, non-tender, non-distended, normal bowel sounds Male genitourinary: Present: normal - Integumentary Integumentary: Present: clear, warm, dry - Musculoskeletal Musculoskeletal: gait normal, strength equal bilaterally - Psychiatric Psychiatric: appropriate mood/affect, intact judgment & insight - Neurologic Neurologic: CNII-XII intact, moves all extremities Plan Activity: no restrictions Diet: low salt Follow up with: PRIMARY CAREMD [Primary Care Provider] - 3-5 Days Forms: AMA Form
[2020-02-26] MEDS ORDERED: EZETIMIBE 10 MG TAB PO SCH (22:00)
== END 2020-02-26 16:00 | disposition left against medical advice (07) | DRG 280 ==
LOC: ED 09:14 → 4A 17:00 → OBSVTOIN 02-26 10:00
PROVIDERS: ADMIT Internal Medicine; ATTEND Internal Medicine
PROC: 4A023N7 Measurement of Cardiac Sampling and Pressure, Left Heart, Percutaneous Approach (ICD-10-PCS; principal; 2020-02-26)
PROC: B2111ZZ Fluoroscopy of Multiple Coronary Arteries using Low Osmolar Contrast (ICD-10-PCS; 2020-02-26)
DX: I21.4 Non-ST elevation (NSTEMI) myocardial infarction (principal); I50.31 Acute diastolic (congestive) heart failure; R77.8 Other specified abnormalities of plasma proteins; I25.10 Atherosclerotic heart disease of native coronary artery without angina pectoris; E78.5 Hyperlipidemia, unspecified; I11.0 Hypertensive heart disease with heart failure; S63.591A Other specified sprain of right wrist, initial encounter; Z53.29 Procedure and treatment not carried out because of patient's decision for other reasons; M19.90 Unspecified osteoarthritis, unspecified site; E78.00 Pure hypercholesterolemia, unspecified; G89.29 Other chronic pain; F17.200 Nicotine dependence, unspecified, uncomplicated; E66.9 Obesity, unspecified; Z88.5 Allergy status to narcotic agent; Z88.6 Allergy status to analgesic agent; Z88.0 Allergy status to penicillin; Y93.89 Activity, other specified; Y92.89 Other specified places as the place of occurrence of the external cause; Y99.8 Other external cause status; Z88.8 Allergy status to other drugs, medicaments and biological substances; Z68.38 Body mass index [BMI] 38.0-38.9, adult; W18.39XA Other fall on same level, initial encounter
CPT/HCPCS: 36415; 71045; 80048; 80053; 80061; 83036; 83880; 84484; 85007; 85014; 85018; 85025; 85049; 85379; 85610; 85730; 93005; 93458; 96374; 96375; G0378; C1894; J0360; J1644; J2250; J3010; J7040; Q9967